=== PATIENT | female | born 1950 | race African-American/Black ===

== ENCOUNTER 2017-06-01 10:18 | Inpatient (IN) | payer OTHER ==
[~2017-06-01] VITALS: Ht 162.6 cm; Wt 100.4 kg
[~2017-06-01 10:18] MED LIST: CIPROFLOXACIN500 M2 ORAL; IBUPROFEN600 MG ORAL; NKM; TRAMADOL HCL50 MG ORAL
[2017-06-01] MEDS ORDERED: Ipratropium 0.02% Inh Soln 2.5ml UD HHN ONE (10:45)
[2017-06-01] MEDS ORDERED: Albuterol ud Inhalation HHN ONE (10:45)
--- NOTE | 2017-06-01 11:00 | Emergency Room Report ---
History of Present Illness General Chief Complaint: Flu Like Symptoms Source: Patient, EMS Present Illness HPI Patient presents with 5 days of increasing dyspnea. States this with exertion and also orthopnea. She's had congestive heart failure in the past. She denies any pain at this time. She denies fevers or chills or productive cough. She also has wheezing. She denies actual chest pain but feels more that she short of breath and this causes discomfort in chest. H/O anemia in past. No hematemesis, melena. No prior renal dysfunction. Denies fever or chills. No NVD. No dysuria. No rashes. Allergies: Coded Allergies: ACETAMINOPHEN (Verified Allergy, Unknown, 01/20/11) CODEINE (Verified Allergy, Unknown, 01/20/11) HYDROCODONE (Verified Allergy, Unknown, 01/20/11) Patient History Past Medical History: see triage record, old chart reviewed Past Surgical History: other - thyroid surgery Social History: Reports: smoking - former Social History Narrative at home Reviewed Nursing Documentation: PMH: Agreed, PSxH: Agreed Nursing Documentation-PMH Past Medical History: No History, Except For Hx Cardiac Problems: Yes - CHF Hx Hypertension: Yes Hx Asthma: No - "THYROID PROBLEMS" Hx Diabetes: Yes Review of Systems All Other Systems: negative except mentioned in HPI Physical Exam Vital Signs Date Time Temp Pulse Resp B/P (MAP) Pulse Ox O2 Delivery O2 Flow Rate FiO2 06/01/17 10:06 98.7 86 20 151/92 99 Room Air 98.8 06/01/17 10:50 21 Sp02 EP Interpretation: reviewed, normal General Appearance: well appearing, no apparent distress, GCS 15 Head: normocephalic, atraumatic Eyes: bilateral eye PERRL, bilateral eye conjunctivae pale ENT: moist mucus membranes Neck: supple Respiratory: rales, wheezing, expiration Cardiovascular #1: regular rate, rhythm, no edema - evidence of prior edema - wrinkled skin of arms and hands, edema Cardiovascular #2: 2+ radial (R) Gastrointestinal: normal inspection, normal bowel sounds, non tender, no mass, non-distended, overweight Rectal: heme negative stool - brown Genitourinary: no CVA tenderness Musculoskeletal: back normal, gait/station normal, normal range of motion Neurologic: alert, oriented x3, grossly normal Psychiatric: mood/affect normal Skin: normal inspection, warm/dry Procedures Critical Care Time Critical Care Time Total Critical Care Time: 45 min bedside evaluation and treatment excludes procedures (EKG). Reason for critical care: NSTEMI, significant anemia, chf Possible complications: hypotension, hypertension, CT, shock, arrhythmias, metabolic acidosis, end organ damage, respiratory failure. Interventions: albuterol, lasix, transfusions, aspirin, nitro paste Course: Patient with PRITCHETT and wheezing. Albuterol given with help. CXR with CHF. Lasix ordered. Significant anemia. + troponin, EKG without STEMI. Aspirin given, nitrates (pain free). Due to anemia and cardiac ischemia - emergent transfusion (though slow due to CHF). Admit [facility]. Consultations: nursing staff, EMS, blood bank Performed by: Dr. Avalos Tolerated well condition = serious Medical Decision Making Diagnostic Impression: Primary Impression: NSTEMI (non-ST elevated myocardial infarction) Additional Impressions: CHF (congestive heart failure) Qualified Codes: I50.43 - Acute on chronic combined systolic (congestive) and diastolic (congestive) heart failure Anemia Qualified Codes: D50.0 - Iron deficiency anemia secondary to blood loss ( chronic) Pyuria ER Course Patient with PRITCHETT/orthopnea and wheezing. DDx: asthma, cardiac asthma, AMI, bronchitis amongst others. No evidence of infectious process at this time. Treatment with albuterol Evaluation with EKG, CXR, labs. EKG no STEMI/injury. CXR with CHF. Lasix ordered. Significant anemia. Rectal neg. Prior H/H have been low (distant testing). + troponin found at 12:00. Treated with aspirin and nitro-bid. In face of NSTEMI - emergent transfusion (call to blood bank). Informed consent. Blood started in ED - patient tolerating well. Admit [facility] Dr. Chowdary. Laboratory Tests Test 06/01/17 11:00 06/01/17 11:34 06/01/17 16:20 White Blood Count 6.0 K/UL (4.8-10.8) Red Blood Count 3.51 M/UL (4.20-5.40) L Hemoglobin 7.9 G/DL (12.0-16.0) L Hematocrit 26.9 % (37.0-47.0) L Mean Corpuscular Volume 77 FL (80-99) L Mean Corpuscular Hemoglobin 22.6 PG (27.0-31.0) L Mean Corpuscular Hemoglobin Concent 29.5 G/DL (32.0-36.0) L Red Cell Distribution Width 17.0 % (11.6-14.8) H Platelet Count 157 K/UL (150-450) Mean Platelet Volume 8.9 FL (6.5-10.1) Neutrophils (%) (Auto) % (45.0-75.0) Lymphocytes (%) (Auto) % (20.0-45.0) Monocytes (%) (Auto) % (1.0-10.0) Eosinophils (%) (Auto) % (0.0-3.0) Basophils (%) (Auto) % (0.0-2.0) Differential Total Cells Counted 100 Neutrophils % (Manual) 65 % (45-75) Lymphocytes % (Manual) 31 % (20-45) Monocytes % (Manual) 1 % (1-10) Eosinophils % (Manual) 3 % (0-3) Basophils % (Manual) 0 % (0-2) Band Neutrophils 0 % (0-8) Platelet Estimate Adequate Platelet Morphology Normal Hypochromasia 1+ Anisocytosis 1+ Microcytosis Prothrombin Time 10.2 SEC (9.30-11.50) Prothrombin Time INR 1.0 (0.9-1.1) PTT 26 SEC (23-33) Sodium Level 141 MMOL/L (136-145) Potassium Level 3.9 MMOL/L (3.5-5.1) Chloride Level 104 MMOL/L (98-107) Carbon Dioxide Level 30 MMOL/L (21-32) Anion Gap 7 mmol/L (5-15) Blood Urea Nitrogen 15 mg/dL (7-18) Creatinine 1.3 MG/DL (0.55-1.30) Estimate Glomerular Filtration Rate 49.8 mL/min (>60) Glucose Level 163 MG/DL (74-106) H Calcium Level 9.6 MG/DL (8.5-10.1) Total Bilirubin 0.5 MG/DL (0.2-1.0) Aspartate Amino Transferase (AST) 29 U/L (15-37) Alanine Aminotransferase (ALT) 26 U/L (12-78) Alkaline Phosphatase 92 U/L (46-116) Total Creatine Kinase 272 U/L (26-308) Troponin I 0.087 ng/mL (0.000-0.056) 0.093 ng/mL (0.000-0.056) Pro-B-Type Natriuretic Peptide 2757 pg/mL (0-125) H Total Protein 8.5 G/DL (6.4-8.2) H Albumin 4.2 G/DL (3.4-5.0) Globulin 4.3 g/dL Albumin/Globulin Ratio 1.0 (1.0-2.7) Urine Color Pale yellow Urine Appearance Slightly cloudy Urine pH 6 (4.5-8.0) Urine Specific [place] 1.015 (1.005-1.035) Urine Protein 2+ (NEGATIVE) H Urine Glucose (UA) Negative (NEGATIVE) Urine Ketones Negative (NEGATIVE) Urine Occult Blood 2+ (NEGATIVE) H Urine Nitrite Negative (NEGATIVE) Urine Bilirubin Negative (NEGATIVE) Urine Urobilinogen Normal MG/DL (0.0-1.0) Urine Leukocyte Esterase 3+ (NEGATIVE) H Urine RBC 5-10 /HPF (0 - 2) H Urine WBC 10-15 /HPF (0 - 2) H Urine Squamous Epithelial Cells Few /LPF (NONE/OCC) Urine Bacteria Few /HPF (NONE) Urine Mucus Few /LPF (NONE/OCC) H Urine Trichomonas Few /HPF (NONE) H Iron Level 52 ug/dL (50-175) Total Iron Binding Capacity 350 ug/dL (250-450) Percent Iron Saturation 15 % (15-50) Unsaturated Iron Binding 298 ug/dL (112-346) EKG Diagnostic Results Rate: normal Rhythm: NSR ST Segments: no acute changes Rhythm Strip Diag. Results EP Interpretation: yes Rhythm: NSR, no PVC's, no ectopy Chest X-Ray Diagnostic Results Chest X-Ray Diagnostic Results : Chest X-Ray Ordered: Yes # of Views/Limited/Complete: 1 View Indication: Shortness of Breath EP Interpretation: Yes Interpretation: no pneumothorax, other - CHF with effusions Impression: Other Electronically Signed by: Grey Avalos MD Last Vital Signs Date Time Temp Pulse Resp B/P (MAP) Pulse Ox O2 Delivery O2 Flow Rate FiO2 06/01/17 22:16 88 20 99 Nasal Cannula 2.0 28 06/01/17 15:00 97.5 140/97 Status: improved Disposition: ADMITTED INPATIENT Condition: Serious Referrals: [facility],REFERRING (PCP) Grey Avalos M.D. Jun 01, 2017 11:00
[2017-06-01 11:10] VITALS: BP 128/78
[2017-06-01 11:16] LABS: HEMATOCRIT 26.9 % (37.0-47.0); HEMOGLOBIN 7.9 G/DL (12.0-16.0); MEAN CORPUSCULAR VOLUME 77 FL (80-99); PLATELET COUNT 157 K/UL (150-450); RED BLOOD COUNT 3.51 M/UL (4.20-5.40)
[2017-06-01 11:24] LABS: ANION GAP 7 mmol/L (5-15); BLOOD UREA NITROGEN 15 mg/dL (7-18); CALCIUM 9.6 MG/DL (8.5-10.1); CARBON DIOXIDE 30 MMOL/L (21-32); CHLORIDE 104 MMOL/L (98-107); CREATININE 1.3 MG/DL (0.55-1.30); POTASSIUM 3.9 MMOL/L (3.5-5.1); SODIUM 141 MMOL/L (136-145)
[2017-06-01 11:36] LABS: ALANINE AMINOTRANSFERASE 26 U/L (12-78); ALBUMIN 4.2 G/DL (3.4-5.0); ALKALINE PHOSPHATASE 92 U/L (46-116); ASPARTATE AMINO TRANSFERASE 29 U/L (15-37); BILIRUBIN,TOTAL 0.5 MG/DL (0.2-1.0); CREATINE KINASE 272 U/L (26-308)
--- NOTE | 2017-06-01 11:45 | Diagnostic Imaging Report ---
Indication: Dyspnea Comparison: 05/21/2014 A single view chest radiograph was obtained. Findings: Interstitial edema, vascular prominence and cephalization with cardiomegaly demonstrated. Findings consistent with congestive heart failure. Bones are unremarkable. IMPRESSION: Interstitial edema/congestive heart failure
[2017-06-01 11:58] LABS: APPEARANCE,URINE SLIGHTLY CLOUDY; BILIRUBIN, URINE NEGATIVE (NEGATIVE); COLOR,URINE PALE YELLOW; GLUCOSE, URINE (UA) NEGATIVE (NEGATIVE); KETONES,URINE NEGATIVE (NEGATIVE); LEUKOCYTE ESTERASE ,URINE 3+ (NEGATIVE); NITRITE,URINE NEGATIVE (NEGATIVE); PH,URINE 6 (4.5-8.0); PROTEIN,URINE 2+ (NEGATIVE); UROBILINOGEN,URINE NORMAL MG/DL (0.0-1.0)
[2017-06-01] MEDS ORDERED: Nitroglycerin 2% oint pkt TOPIC ONE (12:15)
[2017-06-01 14:08] VITALS: BP 137/81
[2017-06-01 15:00] VITALS: BP 140/97
[2017-06-01] MEDS ORDERED: Albuterol/Ipratropium 3ml neb HHN PRN (16:00)
[2017-06-01] MEDS ORDERED: Miralax 17gm pkt ORAL PRN (16:00)
[2017-06-01] MEDS: Albuterol/Ipratropium 3ml neb HHN PRN ×2 (18:04→22:05)
--- NOTE | 2017-06-01 18:15 | History and Physical ---
History of Present Illness General Date patient seen: Jun 01, 2017 Reason for Hospitalization: Flu Like Symptoms Present Illness HPI 66 year old female with hx of obesity, HTN, Asthma presented to with 5 days of increasing dyspnea with exertion and also orthopnea. She's had congestive heart failure in the past. She denies any pain at this time. She denies fevers or chills or productive cough. She also has wheezing. She denies actual chest pain but feels more that she short of breath and this causes discomfort in chest. She had positive troponin and her H/h was critically low and she was admitted to [facility] for further treatment. Allergies: Coded Allergies: ACETAMINOPHEN (Verified Allergy, Unknown, 01/20/11) CODEINE (Verified Allergy, Unknown, 01/20/11) HYDROCODONE (Verified Allergy, Unknown, 01/20/11) Medication History Scheduled Ciprofloxacin Hcl* (Ciprofloxacin Hcl*), 500 MG ORAL Q12H Ibuprofen* (Motrin*), 600 MG ORAL THREE TIMES A DAY No Known Medications* (NKM - No Known Medications*), 0 ., (Reported) Scheduled PRN Ibuprofen* (Motrin*), 600 MG ORAL Q8H PRN for For Pain Tramadol Hcl* (Ultram*), 50 MG ORAL Q6H PRN for For Pain Tramadol Hcl* (Ultram*), 50 MG ORAL Q6H PRN for For Pain Patient History Healthcare decision maker N/A Resuscitation status Full Code Advanced Directive on File Review of Systems Constitutional: Reports: no symptoms, malaise, weakness Eye: Reports: no symptoms Respiratory: Reports: no symptoms, shortness of breath Cardiovascular: Reports: chest pain Physical Exam General Appearance: WD/WN Lines, tubes and drains: peripheral, central line HEENT: atraumatic Neck: normal alignment Respiratory/Chest: chest wall non-tender, lungs clear Breasts: no masses Cardiovascular/Chest: normal peripheral pulses Abdomen: non tender Genitourinary/Rectal: normal genital exam Skin Exam: normal pigmentation Neurologic: press supervisor II-XII grossly normal Last 24 Hour Vital Signs Date Time Temp Pulse Resp B/P (MAP) Pulse Ox O2 Delivery O2 Flow Rate FiO2 06/01/17 18:09 98 Nasal Cannula 2.0 28 06/01/17 18:09 Nasal Cannula 2.0 28 06/01/17 18:05 88 20 98 Nasal Cannula 2.0 28 06/01/17 16:02 85 06/01/17 15:00 97.5 89 19 140/97 96 Room Air 06/01/17 14:15 86 18 137/81 98 Room Air 06/01/17 14:08 89 19 137/81 99 Room Air 06/01/17 12:25 128/81 06/01/17 11:10 87 28 128/78 98 Room Air 06/01/17 11:03 87 18 100 Room Air 21 06/01/17 10:50 21 06/01/17 10:50 80 17 Room Air 06/01/17 10:50 80 17 98 Room Air 21 06/01/17 10:17 86 20 Room Air 06/01/17 10:06 98.7 86 20 151/92 99 Room Air 98.8 Laboratory Tests Test 06/01/17 11:00 06/01/17 11:34 06/01/17 16:20 White Blood Count 6.0 K/UL (4.8-10.8) Red Blood Count 3.51 M/UL (4.20-5.40) L Hemoglobin 7.9 G/DL (12.0-16.0) L Hematocrit 26.9 % (37.0-47.0) L Mean Corpuscular Volume 77 FL (80-99) L Mean Corpuscular Hemoglobin 22.6 PG (27.0-31.0) L Mean Corpuscular Hemoglobin Concent 29.5 G/DL (32.0-36.0) L Red Cell Distribution Width 17.0 % (11.6-14.8) H Platelet Count 157 K/UL (150-450) Mean Platelet Volume 8.9 FL (6.5-10.1) Neutrophils (%) (Auto) % (45.0-75.0) Lymphocytes (%) (Auto) % (20.0-45.0) Monocytes (%) (Auto) % (1.0-10.0) Eosinophils (%) (Auto) % (0.0-3.0) Basophils (%) (Auto) % (0.0-2.0) Differential Total Cells Counted 100 Neutrophils % (Manual) 65 % (45-75) Lymphocytes % (Manual) 31 % (20-45) Monocytes % (Manual) 1 % (1-10) Eosinophils % (Manual) 3 % (0-3) Basophils % (Manual) 0 % (0-2) Band Neutrophils 0 % (0-8) Platelet Estimate Adequate Platelet Morphology Normal Hypochromasia 1+ Anisocytosis 1+ Microcytosis Prothrombin Time 10.2 SEC (9.30-11.50) Prothromb Time International Ratio 1.0 (0.9-1.1) Activated Partial Thromboplast Time 26 SEC (23-33) Sodium Level 141 MMOL/L (136-145) Potassium Level 3.9 MMOL/L (3.5-5.1) Chloride Level 104 MMOL/L (98-107) Carbon Dioxide Level 30 MMOL/L (21-32) Anion Gap 7 mmol/L (5-15) Blood Urea Nitrogen 15 mg/dL (7-18) Creatinine 1.3 MG/DL (0.55-1.30) Estimat Glomerular Filtration Rate 49.8 mL/min (>60) Glucose Level 163 MG/DL (74-106) H Calcium Level 9.6 MG/DL (8.5-10.1) Total Bilirubin 0.5 MG/DL (0.2-1.0) Aspartate Amino Transf (AST/SGOT) 29 U/L (15-37) Alanine Aminotransferase (ALT/SGPT) 26 U/L (12-78) Alkaline Phosphatase 92 U/L (46-116) Total Creatine Kinase 272 U/L (26-308) Troponin I 0.087 ng/mL (0.000-0.056) 0.093 ng/mL (0.000-0.056) Pro-B-Type Natriuretic Peptide 2757 pg/mL (0-125) H Total Protein 8.5 G/DL (6.4-8.2) H Albumin 4.2 G/DL (3.4-5.0) Globulin 4.3 g/dL Albumin/Globulin Ratio 1.0 (1.0-2.7) Urine Color Pale yellow Urine Appearance Slightly cloudy Urine pH 6 (4.5-8.0) Urine Specific [place] 1.015 (1.005-1.035) Urine Protein 2+ (NEGATIVE) H Urine Glucose (UA) Negative (NEGATIVE) Urine Ketones Negative (NEGATIVE) Urine Occult Blood 2+ (NEGATIVE) H Urine Nitrite Negative (NEGATIVE) Urine Bilirubin Negative (NEGATIVE) Urine Urobilinogen Normal MG/DL (0.0-1.0) Urine Leukocyte Esterase 3+ (NEGATIVE) H Urine RBC 5-10 /HPF (0 - 2) H Urine WBC 10-15 /HPF (0 - 2) H Urine Squamous Epithelial Cells Few /LPF (NONE/OCC) Urine Bacteria Few /HPF (NONE) Urine Mucus Few /LPF (NONE/OCC) H Urine Trichomonas Few /HPF (NONE) H Height (Feet): 5 Height (Inches): 4.00 Weight (Pounds): 224 Medications Current Medications Medications (Trade) Dose Ordered Sig/Ricardo Route PRN Reason Start Time Stop Time Status Last Admin Dose Admin Albuterol/ Ipratropium (Albuterol/ Ipratropium) 3 ml Q4H PRN HHN Shortness of Breath 06/01/17 18:00 06/06/17 17:59 06/01/17 18:04 Dextrose (Dextrose 50%) STAT PRN IV Hypoglycemia 06/01/17 16:00 07/01/17 15:59 Furosemide (Lasix) 40 mg EVERY 8 HOURS IV 06/01/17 22:00 07/01/17 21:59 Heparin Sodium (Porcine) (Heparin 5000 units/ml) 5,000 units EVERY 12 HOURS SUBQ 06/01/17 21:00 07/01/17 20:59 Ondansetron HCl (Zofran) 4 mg Q6H PRN IVP Nausea & Vomiting 06/01/17 16:00 07/01/17 15:59 Polyethylene Glycol (Miralax) 17 gm DAILYPRN PRN ORAL Constipation 06/01/17 16:00 07/01/17 15:59 Temazepam (Restoril) 15 mg HSPRN PRN ORAL Insomnia 06/01/17 16:00 06/08/17 15:59 Assessment/Plan Problem List: (1) NSTEMI (non-ST elevated myocardial infarction) ICD Codes: I21.4 - Non-ST elevation (NSTEMI) myocardial infarction SNOMED: 724390361 (2) CHF (congestive heart failure) ICD Codes: I50.9 - Heart failure, unspecified SNOMED: 89921292 Qualifiers: Qualified Codes: I50.43 - Acute on chronic combined systolic (congestive) and diastolic (congestive) heart failure (3) Acute chest pain ICD Codes: R07.9 - Chest pain, unspecified SNOMED: 724454103 (4) Anemia ICD Codes: D64.9 - Anemia, unspecified SNOMED: 588573647 Qualifiers: Qualified Codes: D50.0 - Iron deficiency anemia secondary to blood loss ( chronic) Assessment/Plan diuresis prbc amenia w/u stool for OB echo cariology to see dvt prophylaxis. MUKESH LOU Jun 01, 2017 18:14
--- NOTE | 2017-06-01 19:58 | Cardiology Progress Note ---
Assessment/Plan Assessment/Plan [id number] diuretic repeat enzyme ekg stool ob anemia guaman per pmd echo Objective Last 24 Hour Vital Signs Date Time Temp Pulse Resp B/P (MAP) Pulse Ox O2 Delivery O2 Flow Rate FiO2 06/01/17 18:17 89 18 99 Nasal Cannula 2.0 28 06/01/17 18:09 98 Nasal Cannula 2.0 28 06/01/17 18:09 Nasal Cannula 2.0 28 06/01/17 18:05 88 20 98 Nasal Cannula 2.0 28 06/01/17 16:02 85 06/01/17 15:00 97.5 89 19 140/97 96 Room Air 06/01/17 14:15 86 18 137/81 98 Room Air 06/01/17 14:08 89 19 137/81 99 Room Air 06/01/17 12:25 128/81 06/01/17 11:10 87 28 128/78 98 Room Air 06/01/17 11:03 87 18 100 Room Air 21 06/01/17 10:50 21 06/01/17 10:50 80 17 Room Air 06/01/17 10:50 80 17 98 Room Air 21 06/01/17 10:17 86 20 Room Air 06/01/17 10:06 98.7 86 20 151/92 99 Room Air 98.8 Laboratory Tests Test 06/01/17 11:00 06/01/17 11:34 06/01/17 16:20 White Blood Count 6.0 K/UL (4.8-10.8) Red Blood Count 3.51 M/UL (4.20-5.40) L Hemoglobin 7.9 G/DL (12.0-16.0) L Hematocrit 26.9 % (37.0-47.0) L Mean Corpuscular Volume 77 FL (80-99) L Mean Corpuscular Hemoglobin 22.6 PG (27.0-31.0) L Mean Corpuscular Hemoglobin Concent 29.5 G/DL (32.0-36.0) L Red Cell Distribution Width 17.0 % (11.6-14.8) H Platelet Count 157 K/UL (150-450) Mean Platelet Volume 8.9 FL (6.5-10.1) Neutrophils (%) (Auto) % (45.0-75.0) Lymphocytes (%) (Auto) % (20.0-45.0) Monocytes (%) (Auto) % (1.0-10.0) Eosinophils (%) (Auto) % (0.0-3.0) Basophils (%) (Auto) % (0.0-2.0) Differential Total Cells Counted 100 Neutrophils % (Manual) 65 % (45-75) Lymphocytes % (Manual) 31 % (20-45) Monocytes % (Manual) 1 % (1-10) Eosinophils % (Manual) 3 % (0-3) Basophils % (Manual) 0 % (0-2) Band Neutrophils 0 % (0-8) Platelet Estimate Adequate Platelet Morphology Normal Hypochromasia 1+ Anisocytosis 1+ Microcytosis Prothrombin Time 10.2 SEC (9.30-11.50) Prothromb Time International Ratio 1.0 (0.9-1.1) Activated Partial Thromboplast Time 26 SEC (23-33) Sodium Level 141 MMOL/L (136-145) Potassium Level 3.9 MMOL/L (3.5-5.1) Chloride Level 104 MMOL/L (98-107) Carbon Dioxide Level 30 MMOL/L (21-32) Anion Gap 7 mmol/L (5-15) Blood Urea Nitrogen 15 mg/dL (7-18) Creatinine 1.3 MG/DL (0.55-1.30) Estimat Glomerular Filtration Rate 49.8 mL/min (>60) Glucose Level 163 MG/DL (74-106) H Calcium Level 9.6 MG/DL (8.5-10.1) Total Bilirubin 0.5 MG/DL (0.2-1.0) Aspartate Amino Transf (AST/SGOT) 29 U/L (15-37) Alanine Aminotransferase (ALT/SGPT) 26 U/L (12-78) Alkaline Phosphatase 92 U/L (46-116) Total Creatine Kinase 272 U/L (26-308) Troponin I 0.087 ng/mL (0.000-0.056) 0.093 ng/mL (0.000-0.056) Pro-B-Type Natriuretic Peptide 2757 pg/mL (0-125) H Total Protein 8.5 G/DL (6.4-8.2) H Albumin 4.2 G/DL (3.4-5.0) Globulin 4.3 g/dL Albumin/Globulin Ratio 1.0 (1.0-2.7) Urine Color Pale yellow Urine Appearance Slightly cloudy Urine pH 6 (4.5-8.0) Urine Specific [place] 1.015 (1.005-1.035) Urine Protein 2+ (NEGATIVE) H Urine Glucose (UA) Negative (NEGATIVE) Urine Ketones Negative (NEGATIVE) Urine Occult Blood 2+ (NEGATIVE) H Urine Nitrite Negative (NEGATIVE) Urine Bilirubin Negative (NEGATIVE) Urine Urobilinogen Normal MG/DL (0.0-1.0) Urine Leukocyte Esterase 3+ (NEGATIVE) H Urine RBC 5-10 /HPF (0 - 2) H Urine WBC 10-15 /HPF (0 - 2) H Urine Squamous Epithelial Cells Few /LPF (NONE/OCC) Urine Bacteria Few /HPF (NONE) Urine Mucus Few /LPF (NONE/OCC) H Urine Trichomonas Few /HPF (NONE) H SURESH SALINAS Jun 01, 2017 19:58
[2017-06-01 20:00] VITALS: BP 139/85
[2017-06-01] MEDS: Heparin 5000 units/ml inj SUBQ SCH (20:26)
[2017-06-01 20:36] LABS: % IRON SATURATION 15 % (15-50); IRON 52 ug/dL (50-175); TOTAL IRON BINDING CAPACITY 350 ug/dL (250-450)
[2017-06-02] VITALS (7 sets, daily range): BP systolic 108–149; BP diastolic 58–82
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
[2017-06-02] MEDS: Albuterol/Ipratropium 3ml neb HHN PRN ×3 (02:19→21:19)
[2017-06-02 04:51] LABS: BASOPHILS % (AUTO) 0.6 % (0.0-2.0); EOSINOPHILS % (AUTO) 1.4 % (0.0-3.0); HEMATOCRIT 31.2 % (37.0-47.0); HEMOGLOBIN 9.5 G/DL (12.0-16.0); LYMPHOCYTES % (AUTO) 20.1 % (20.0-45.0); MEAN CORPUSCULAR VOLUME 80 FL (80-99); MONOCYTES % (AUTO) 2.7 % (1.0-10.0); NEUTROPHILS % (AUTO) 75.3 % (45.0-75.0); PLATELET COUNT 160 K/UL (150-450); RED BLOOD COUNT 3.91 M/UL (4.20-5.40); RED CELL DISTRIBUTION WIDTH 17.2 % (11.6-14.8); WHITE BLOOD COUNT 6.7 K/UL (4.8-10.8)
[2017-06-02 05:08] LABS: ALBUMIN 4.4 G/DL (3.4-5.0); ANION GAP 7 mmol/L (5-15); BLOOD UREA NITROGEN 15 mg/dL (7-18); CARBON DIOXIDE 31 MMOL/L (21-32); CHLORIDE 102 MMOL/L (98-107); CREATININE 1.3 MG/DL (0.55-1.30); PHOSPHORUS 3.1 MG/DL (2.5-4.9); POTASSIUM 4.6 MMOL/L (3.5-5.1); SODIUM 140 MMOL/L (136-145)
[2017-06-02] MEDS: Heparin 5000 units/ml inj SUBQ SCH ×2 (08:58→21:40)
--- NOTE | 2017-06-02 11:49 | Pulmonology Progress Note ---
Assessment/Plan Problems: (1) NSTEMI (non-ST elevated myocardial infarction) (2) CHF (congestive heart failure) (3) Acute chest pain (4) Anemia Assessment/Plan cardio f/u check echo check troponin h/h better now telemetry respiratory treatment. Subjective ROS Limited/Unobtainable: No Allergies: Coded Allergies: ACETAMINOPHEN (Verified Allergy, Unknown, 01/20/11) CODEINE (Verified Allergy, Unknown, 01/20/11) HYDROCODONE (Verified Allergy, Unknown, 01/20/11) Objective Last 24 Hour Vital Signs Date Time Temp Pulse Resp B/P (MAP) Pulse Ox O2 Delivery O2 Flow Rate FiO2 06/02/17 08:00 88 06/02/17 07:58 97.8 90 20 149/82 98 Nasal Cannula 2.0 06/02/17 07:55 89 22 98 Nasal Cannula 2.0 28 06/02/17 07:49 96 Nasal Cannula 2.0 28 06/02/17 07:49 Nasal Cannula 2.0 28 06/02/17 07:48 87 20 96 Nasal Cannula 2.0 28 06/02/17 04:00 98.0 89 24 122/70 99 Nasal Cannula 2.0 06/02/17 02:20 83 23 96 Nasal Cannula 2.0 28 06/02/17 00:50 90 06/02/17 00:00 94 06/02/17 00:00 97.7 87 24 148/58 99 Nasal Cannula 2.0 06/01/17 22:16 88 20 99 Nasal Cannula 2.0 28 06/01/17 22:08 88 22 97 Nasal Cannula 2.0 28 06/01/17 20:00 94 06/01/17 20:00 97.7 86 28 139/85 99 Nasal Cannula 2.0 06/01/17 18:17 89 18 99 Nasal Cannula 2.0 28 06/01/17 18:09 98 Nasal Cannula 2.0 28 06/01/17 18:09 Nasal Cannula 2.0 28 06/01/17 18:05 88 20 98 Nasal Cannula 2.0 28 06/01/17 16:02 85 06/01/17 15:00 97.5 89 19 140/97 96 Room Air 06/01/17 14:15 86 18 137/81 98 Room Air 06/01/17 14:08 89 19 137/81 99 Room Air 06/01/17 12:25 128/81 Intake and Output 06/01/17 06/02/17 19:00 07:00 Intake Total 620 ml 150 ml Output Total 520 ml Balance 620 ml -370 ml Intake Oral 120 ml 150 ml Blood Product 500 ml Output Urine Total 520 ml # Voids 3 Objective General Appearance: WD/WN Lines, tubes and drains: peripheral, central line HEENT: atraumatic Neck: normal alignment Respiratory/Chest: chest wall non-tender, lungs clear Breasts: no masses Cardiovascular/Chest: normal peripheral pulses Abdomen: non tender Genitourinary/Rectal: normal genital exam Skin Exam: normal pigmentation Microbiology Date/Time Source Procedure Growth Status 06/01/17 11:34 Urine,Clean Catch Urine Culture - Preliminary Resulted Laboratory Tests 06/01/17 16:20: Iron Level 52, Total Iron Binding Capacity 350, Percent Iron Saturation 15, Unsaturated Iron Binding 298, Troponin I 0.093H 06/02/17 03:50: Troponin I 0.076H, White Blood Count 6.7, Red Blood Count 3.91L, Hemoglobin 9.5L , Hematocrit 31.2L, Mean Corpuscular Volume 80, Mean Corpuscular Hemoglobin 24.3L, Mean Corpuscular Hemoglobin Concent 30.5L, Red Cell Distribution Width 17.2H, Platelet Count 160, Mean Platelet Volume 8.7, Neutrophils (%) (Auto) 75.3H, Lymphocytes (%) (Auto) 20.1, Monocytes (%) (Auto) 2.7, Eosinophils (%) ( Auto) 1.4, Basophils (%) (Auto) 0.6, Sodium Level 140, Potassium Level 4.6, Chloride Level 102, Carbon Dioxide Level 31, Anion Gap 7, Blood Urea Nitrogen 15 , Creatinine 1.3, Estimat Glomerular Filtration Rate 49.8, Glucose Level 154H, Calcium Level 10.0, Phosphorus Level 3.1, Albumin 4.4 Current Medications Medications (Trade) Dose Ordered Sig/Ricardo Route PRN Reason Start Time Stop Time Status Last Admin Dose Admin Albuterol/ Ipratropium (Albuterol/ Ipratropium) 3 ml Q4H PRN HHN Shortness of Breath 06/01/17 18:00 06/06/17 17:59 06/02/17 07:46 Dextrose (Dextrose 50%) STAT PRN IV Hypoglycemia 06/01/17 16:00 07/01/17 15:59 Furosemide (Lasix) 40 mg EVERY 8 HOURS IV 06/01/17 22:00 07/01/17 21:59 06/02/17 06:13 Heparin Sodium (Porcine) (Heparin 5000 units/ml) 5,000 units EVERY 12 HOURS SUBQ 06/01/17 21:00 07/01/17 20:59 06/02/17 08:58 Ondansetron HCl (Zofran) 4 mg Q6H PRN IVP Nausea & Vomiting 06/01/17 16:00 07/01/17 15:59 Polyethylene Glycol (Miralax) 17 gm DAILYPRN PRN ORAL Constipation 06/01/17 16:00 07/01/17 15:59 Temazepam (Restoril) 15 mg HSPRN PRN ORAL Insomnia 06/01/17 16:00 06/08/17 15:59 06/01/17 23:21 MUKESH LOU Jun 02, 2017 11:49
--- NOTE | 2017-06-02 12:57 | Cardiology Report ---
APPROVED REPORT EKG Measurement Heart [id number] Normal sinus rhythm Low voltage QRS Septal infarct, age undetermined Abnormal ECG
--- NOTE | 2017-06-02 13:07 | Diagnostic Imaging Report ---
Indication: Dyspnea Comparison: 06/01/2017 A single view chest radiograph was obtained. Findings: The heart is enlarged. The pulmonary vascular congestion present. Interstitial edema noted. IMPRESSION: CHF. No significant change
--- NOTE | 2017-06-02 17:17 | Consultation ---
History of Present Illness General Date patient seen: Jun 02, 2017 Time patient seen: 17:06 Chief Complaint: Flu Like Symptoms Present Illness HPI 66 y/o F with hx of COPD/asthma, HTN, HLD, CHF, obesity presents to ED on 06/01 with 5 day onset of worsening SOB, cough wheezing, chest pain, PND, orthopnea and occasional dizziness/lightheadedness. Found to have troponinemia and Hgb of 7.9 +runny nose, cough, chills. No sick contqacts Denies f/c, n/v/d, rash, dysuria afebrile, no leukocytosis. CXR with CHF changes. off abx.] of note, was in [place] from end to mar 2017 to mid april for a mission trip from [place]. Did not got sick there, took malaria pills and shots prior to travel. Allergies: Coded Allergies: ACETAMINOPHEN (Verified Allergy, Unknown, 01/20/11) CODEINE (Verified Allergy, Unknown, 01/20/11) HYDROCODONE (Verified Allergy, Unknown, 01/20/11) Medication History Scheduled Ciprofloxacin Hcl* (Ciprofloxacin Hcl*), 500 MG ORAL Q12H Ibuprofen* (Motrin*), 600 MG ORAL THREE TIMES A DAY No Known Medications* (NKM - No Known Medications*), 0 ., (Reported) Scheduled PRN Ibuprofen* (Motrin*), 600 MG ORAL Q8H PRN for For Pain Tramadol Hcl* (Ultram*), 50 MG ORAL Q6H PRN for For Pain Tramadol Hcl* (Ultram*), 50 MG ORAL Q6H PRN for For Pain Patient History Healthcare decision maker N/A Resuscitation status Full Code Advanced Directive on File Patient History Narrative Pmhx: as above Shx: She used to smoke, drink, and use drugs, but she has not done those in approximately 22 years. Fhx: non contributory Review of Systems All Other Systems: negative except mentioned in HPI Physical Exam Physical Exam Narrative GENERAL: Shows her to be a middle-aged female, in no respiratory distress. HEENT: Unremarkable. NECK: Supple. No jugular venous distention. LUNGS: bibasilar crackles CARDIAC: Regular rate and rhythm. No heaves or thrills noted. ABDOMEN: Soft, obese. Positive bowel sounds. CHEST WALL: Tender to palpation. EXTREMITIES: There is no clubbing, cyanosis, or edema. NEUROLOGICAL: She is awake, alert, responsive, in no apparent respiratory distress. Last 24 Hour Vital Signs Date Time Temp Pulse Resp B/P (MAP) Pulse Ox O2 Delivery O2 Flow Rate FiO2 06/02/17 12:00 98.2 86 18 114/75 93 Nasal Cannula 2.0 06/02/17 12:00 88 06/02/17 08:00 88 06/02/17 07:58 97.8 90 20 149/82 98 Nasal Cannula 2.0 06/02/17 07:55 89 22 98 Nasal Cannula 2.0 28 06/02/17 07:49 96 Nasal Cannula 2.0 28 06/02/17 07:49 Nasal Cannula 2.0 28 06/02/17 07:48 87 20 96 Nasal Cannula 2.0 28 06/02/17 04:00 98.0 89 24 122/70 99 Nasal Cannula 2.0 06/02/17 02:20 83 23 96 Nasal Cannula 2.0 28 06/02/17 00:50 90 06/02/17 00:00 94 06/02/17 00:00 97.7 87 24 148/58 99 Nasal Cannula 2.0 06/01/17 22:16 88 20 99 Nasal Cannula 2.0 28 06/01/17 22:08 88 22 97 Nasal Cannula 2.0 28 06/01/17 20:00 94 06/01/17 20:00 97.7 86 28 139/85 99 Nasal Cannula 2.0 06/01/17 18:17 89 18 99 Nasal Cannula 2.0 28 06/01/17 18:09 98 Nasal Cannula 2.0 28 06/01/17 18:09 Nasal Cannula 2.0 28 06/01/17 18:05 88 20 98 Nasal Cannula 2.0 28 Intake and Output 06/01/17 06/02/17 19:00 07:00 Intake Total 620 ml 150 ml Output Total 520 ml Balance 620 ml -370 ml Intake Oral 120 ml 150 ml Blood Product 500 ml Output Urine Total 520 ml # Voids 3 Laboratory Tests Test 06/02/17 03:50 White Blood Count 6.7 K/UL (4.8-10.8) Red Blood Count 3.91 M/UL (4.20-5.40) L Hemoglobin 9.5 G/DL (12.0-16.0) L Hematocrit 31.2 % (37.0-47.0) L Mean Corpuscular Volume 80 FL (80-99) Mean Corpuscular Hemoglobin 24.3 PG (27.0-31.0) L Mean Corpuscular Hemoglobin Concent 30.5 G/DL (32.0-36.0) L Red Cell Distribution Width 17.2 % (11.6-14.8) H Platelet Count 160 K/UL (150-450) Mean Platelet Volume 8.7 FL (6.5-10.1) Neutrophils (%) (Auto) 75.3 % (45.0-75.0) H Lymphocytes (%) (Auto) 20.1 % (20.0-45.0) Monocytes (%) (Auto) 2.7 % (1.0-10.0) Eosinophils (%) (Auto) 1.4 % (0.0-3.0) Basophils (%) (Auto) 0.6 % (0.0-2.0) Sodium Level 140 MMOL/L (136-145) Potassium Level 4.6 MMOL/L (3.5-5.1) Chloride Level 102 MMOL/L (98-107) Carbon Dioxide Level 31 MMOL/L (21-32) Anion Gap 7 mmol/L (5-15) Blood Urea Nitrogen 15 mg/dL (7-18) Creatinine 1.3 MG/DL (0.55-1.30) Estimat Glomerular Filtration Rate 49.8 mL/min (>60) Glucose Level 154 MG/DL (74-106) H Calcium Level 10.0 MG/DL (8.5-10.1) Phosphorus Level 3.1 MG/DL (2.5-4.9) Troponin I 0.076 ng/mL (0.000-0.056) Albumin 4.4 G/DL (3.4-5.0) Height (Feet): 5 Height (Inches): 4.00 Weight (Pounds): 222 Medications Current Medications Medications (Trade) Dose Ordered Sig/Ricardo Route PRN Reason Start Time Stop Time Status Last Admin Dose Admin Albuterol/ Ipratropium (Albuterol/ Ipratropium) 3 ml Q4H PRN HHN Shortness of Breath 06/01/17 18:00 06/06/17 17:59 06/02/17 07:46 Dextrose (Dextrose 50%) STAT PRN IV Hypoglycemia 06/01/17 16:00 07/01/17 15:59 Furosemide (Lasix) 40 mg EVERY 8 HOURS IV 06/01/17 22:00 07/01/17 21:59 06/02/17 13:38 Heparin Sodium (Porcine) (Heparin 5000 units/ml) 5,000 units EVERY 12 HOURS SUBQ 06/01/17 21:00 07/01/17 20:59 06/02/17 08:58 Ondansetron HCl (Zofran) 4 mg Q6H PRN IVP Nausea & Vomiting 06/01/17 16:00 07/01/17 15:59 Polyethylene Glycol (Miralax) 17 gm DAILYPRN PRN ORAL Constipation 06/01/17 16:00 07/01/17 15:59 Temazepam (Restoril) 15 mg HSPRN PRN ORAL Insomnia 06/01/17 16:00 06/08/17 15:59 06/01/17 23:21 Assessment/Plan Assessment/Plan Abx: None Assessment: CHF exacerbation, no evidence fo PNA -CXR: CHF. No significant change URI symptoms- r/o Influenza Afebrile, no leukocytosis -u/a wbc 10/15, nit neg, leuk +3; ucx p- no UTI symptoms Troponinemia Anemia COPD/asthma HTN HLD obesity Plan: -Continue to monitor off abx -influenza test -f/u cx -monitor CBC/BMP, temperatures Thank you for this consultation. Will continue to follow along with you. Discussed with Tiki Covarrubias M.D. Jun 02, 2017 17:17
[2017-06-03 04:00] VITALS: BP 106/64
[2017-06-03 08:00] VITALS: BP 109/64
--- NOTE | 2017-06-03 08:14 | Pulmonology Progress Note ---
Assessment/Plan Assessment/Plan ASSESSMENT Elevated troponin CHF exacerbation, systolic and diastolic severe CM ( EF 20-25%) Severe MR mild pulmonary HTN anemia HTN asthma/COPD obesity PLAN OF CARE DINORAH Diuresis, monitor cardiorenal parameters, volumes ECHO with EF 20-25% and RVSP of 35, severe MR Cardio follows medical management for SHF as per cardio Initial CXR with CHF, O2 HHN Fup with CXR serial troponin, ECG Anemia w/up stool OB s/p 2 u PRBC ID follows keep off abx, no clear evidence of infection influenza negative DVT prophylaxis case discussed and evaluated by supervising physician Subjective Allergies: Coded Allergies: ACETAMINOPHEN (Verified Allergy, Unknown, 01/20/11) CODEINE (Verified Allergy, Unknown, 01/20/11) HYDROCODONE (Verified Allergy, Unknown, 01/20/11) Subjective reports SOB , no chest pain Objective Last 24 Hour Vital Signs Date Time Temp Pulse Resp B/P (MAP) Pulse Ox O2 Delivery O2 Flow Rate FiO2 06/03/17 04:00 97.5 84 20 106/64 99 Nasal Cannula 2.0 06/03/17 04:00 80 06/03/17 00:00 85 06/02/17 23:57 97.5 84 20 108/67 99 Nasal Cannula 2.0 06/02/17 21:27 79 20 99 Nasal Cannula 2.0 28 06/02/17 21:18 86 20 97 Nasal Cannula 2.0 28 06/02/17 20:00 98.2 83 20 116/77 98 Nasal Cannula 2.0 06/02/17 20:00 82 06/02/17 19:27 Nasal Cannula 2.0 28 06/02/17 19:27 88 18 Room Air 06/02/17 19:27 98 Nasal Cannula 2.0 28 06/02/17 16:00 97.8 83 18 108/66 98 Nasal Cannula 2.0 06/02/17 16:00 82 06/02/17 12:00 98.2 86 18 114/75 93 Nasal Cannula 2.0 06/02/17 12:00 88 Intake and Output 06/02/17 06/03/17 19:00 07:00 Intake Total 300 ml 200 ml Output Total 1700 ml 1500 ml Balance -1400 ml -1300 ml Intake Oral 300 ml 200 ml Output Urine Total 1700 ml 1500 ml General Appearance: no acute distress HEENT: normocephalic, atraumatic, anicteric Respiratory/Chest: chest wall non-tender, no accessory muscle use, decreased breath sounds Cardiovascular: normal peripheral pulses, edema - trace BLE , other - SR with frequent PVC Abdomen: normal bowel sounds, soft, non tender - obese Neurologic/Psychiatric: alert, oriented x 3, responsive Musculoskeletal: normal muscle bulk Microbiology Date/Time Source Procedure Growth Status 06/02/17 22:57 Nasopharynx Influenza Types A,B Antigen ([facility]) - Final Complete 06/01/17 11:34 Urine,Clean Catch Urine Culture - Preliminary Mixed Urogenital Contaminants Resulted Laboratory Tests 06/03/17 05:00: Troponin I 0.080H Current Medications Medications (Trade) Dose Ordered Sig/Ricardo Route PRN Reason Start Time Stop Time Status Last Admin Dose Admin Albuterol/ Ipratropium (Albuterol/ Ipratropium) 3 ml Q4H PRN HHN Shortness of Breath 06/01/17 18:00 06/06/17 17:59 06/02/17 21:19 Dextrose (Dextrose 50%) STAT PRN IV Hypoglycemia 06/01/17 16:00 07/01/17 15:59 Furosemide (Lasix) 40 mg EVERY 8 HOURS IV 06/01/17 22:00 07/01/17 21:59 06/03/17 05:56 Heparin Sodium (Porcine) (Heparin 5000 units/ml) 5,000 units EVERY 12 HOURS SUBQ 06/01/17 21:00 07/01/17 20:59 06/02/17 21:40 Ondansetron HCl (Zofran) 4 mg Q6H PRN IVP Nausea & Vomiting 06/01/17 16:00 07/01/17 15:59 Polyethylene Glycol (Miralax) 17 gm DAILYPRN PRN ORAL Constipation 06/01/17 16:00 07/01/17 15:59 Temazepam (Restoril) 15 mg HSPRN PRN ORAL Insomnia 06/01/17 16:00 06/08/17 15:59 06/02/17 21:38 Lexi York NP ([facility]) Jun 03, 2017 08:14
[2017-06-03] MEDS: Heparin 5000 units/ml inj SUBQ SCH ×2 (09:21→21:00)
--- NOTE | 2017-06-03 10:50 | Infectious Diseases Prog Note ---
Assessment/Plan Assessment/Plan Abx: None Assessment: SOB likely 2ry to CHF exacerbation, possible component of bronchitis, no evidence fo PNA -CXR: CHF. No significant change -Echo EF 20-25%, severe MR, mild pHTN URI symptoms- -influenza neg Afebrile, no leukocytosis -u/a wbc 10/15, nit neg, leuk +3; ucx 80-90 mixed urogenital contaminants- no UTI symptoms Troponinemia Anemia COPD/asthma HTN HLD obesity Plan: -Continue to monitor off abx -monitor CBC/BMP, temperatures -resp support -asp precautions Thank you for this consultation. Will continue to follow along with you. Discussed with RN Subjective Allergies: Coded Allergies: ACETAMINOPHEN (Verified Allergy, Unknown, 01/20/11) CODEINE (Verified Allergy, Unknown, 01/20/11) HYDROCODONE (Verified Allergy, Unknown, 01/20/11) Subjective afebrile no leukocytosis Objective Vital Signs Last 24 Hour Vital Signs Date Time Temp Pulse Resp B/P (MAP) Pulse Ox O2 Delivery O2 Flow Rate FiO2 06/03/17 08:18 98 Nasal Cannula 2.0 28 06/03/17 08:18 Nasal Cannula 2.0 28 06/03/17 08:18 87 20 Nasal Cannula 2.0 28 06/03/17 08:00 97.5 79 14 109/64 Room Air 06/03/17 04:00 97.5 84 20 106/64 99 Nasal Cannula 2.0 06/03/17 04:00 80 06/03/17 00:00 85 06/02/17 23:57 97.5 84 20 108/67 99 Nasal Cannula 2.0 06/02/17 21:27 79 20 99 Nasal Cannula 2.0 28 06/02/17 21:18 86 20 97 Nasal Cannula 2.0 28 06/02/17 20:00 98.2 83 20 116/77 98 Nasal Cannula 2.0 06/02/17 20:00 82 06/02/17 19:27 Nasal Cannula 2.0 28 06/02/17 19:27 88 18 Room Air 06/02/17 19:27 98 Nasal Cannula 2.0 28 06/02/17 16:00 97.8 83 18 108/66 98 Nasal Cannula 2.0 06/02/17 16:00 82 06/02/17 12:00 98.2 86 18 114/75 93 Nasal Cannula 2.0 06/02/17 12:00 88 Height (Feet): 5 Height (Inches): 4.00 Weight (Pounds): 219 Objective GENERAL: Shows her to be a middle-aged female, in no respiratory distress. HEENT: Unremarkable. NECK: Supple. No jugular venous distention. LUNGS: bibasilar crackles CARDIAC: Regular rate and rhythm. No heaves or thrills noted. ABDOMEN: Soft, obese. Positive bowel sounds. CHEST WALL: Tender to palpation. EXTREMITIES: There is no clubbing, cyanosis, or edema. NEUROLOGICAL: She is awake, alert, responsive, in no apparent respiratory distress. Microbiology Date/Time Source Procedure Growth Status 06/02/17 22:57 Nasopharynx Influenza Types A,B Antigen ([facility]) - Final Complete 06/01/17 11:34 Urine,Clean Catch Urine Culture - Preliminary Mixed Urogenital Contaminants Resulted Laboratory Tests Test 06/03/17 05:00 Troponin I 0.080 ng/mL (0.000-0.056) Current Medications Medications (Trade) Dose Ordered Sig/Ricardo Route PRN Reason Start Time Stop Time Status Last Admin Dose Admin Albuterol/ Ipratropium (Albuterol/ Ipratropium) 3 ml Q4H PRN HHN Shortness of Breath 06/01/17 18:00 06/06/17 17:59 06/02/17 21:19 Dextrose (Dextrose 50%) STAT PRN IV Hypoglycemia 06/01/17 16:00 07/01/17 15:59 Furosemide (Lasix) 40 mg EVERY 8 HOURS IV 06/01/17 22:00 07/01/17 21:59 06/03/17 05:56 Heparin Sodium (Porcine) (Heparin 5000 units/ml) 5,000 units EVERY 12 HOURS SUBQ 06/01/17 21:00 07/01/17 20:59 06/03/17 09:21 Ondansetron HCl (Zofran) 4 mg Q6H PRN IVP Nausea & Vomiting 06/01/17 16:00 07/01/17 15:59 Polyethylene Glycol (Miralax) 17 gm DAILYPRN PRN ORAL Constipation 06/01/17 16:00 07/01/17 15:59 Temazepam (Restoril) 15 mg HSPRN PRN ORAL Insomnia 06/01/17 16:00 06/08/17 15:59 06/02/17 21:38 Tiki Delvalle M.D. Jun 03, 2017 10:50
[2017-06-03 12:00] VITALS: BP 118/67
[2017-06-03] MEDS: Albuterol/Ipratropium 3ml neb HHN PRN ×2 (12:29→20:18)
[2017-06-03 16:00] VITALS: BP_SYST 108; BP_SYST 150; BP_DIAS 63; BP_DIAS 93
--- NOTE | 2017-06-03 18:20 | Cardiology Progress Note ---
Assessment/Plan Assessment/Plan 1. CHF acute systolic 2. Chest pain. 3. Abnormal cardiac enzymes. 4. Renal insufficiency. 5. Obesity. 6. Chronic obstructive pulmonary disease history. 7. Anemia. 8. anemai iv diuretic rxn for copd trop min abn snow etiology of cm not known yet may need ischemia evla acei echo prelim noted duplex neg for dvt lwo na diet fluid restriction Objective Last 24 Hour Vital Signs Date Time Temp Pulse Resp B/P (MAP) Pulse Ox O2 Delivery O2 Flow Rate FiO2 06/03/17 16:12 76 06/03/17 16:00 97.4 73 18 108/63 97 Nasal Cannula 2.0 06/03/17 12:36 75 20 97 Nasal Cannula 2.0 28 06/03/17 12:33 72 20 96 Nasal Cannula 2.0 28 06/03/17 12:00 97.7 80 15 118/67 92 Room Air 06/03/17 12:00 91 06/03/17 08:18 98 Nasal Cannula 2.0 28 06/03/17 08:18 Nasal Cannula 2.0 28 06/03/17 08:18 87 20 Nasal Cannula 2.0 28 06/03/17 08:00 97.5 79 14 109/64 Room Air 06/03/17 07:50 90 06/03/17 04:00 97.5 84 20 106/64 99 Nasal Cannula 2.0 06/03/17 04:00 80 06/03/17 00:00 85 06/02/17 23:57 97.5 84 20 108/67 99 Nasal Cannula 2.0 06/02/17 21:27 79 20 99 Nasal Cannula 2.0 28 06/02/17 21:18 86 20 97 Nasal Cannula 2.0 28 06/02/17 20:00 98.2 83 20 116/77 98 Nasal Cannula 2.0 06/02/17 20:00 82 06/02/17 19:27 Nasal Cannula 2.0 28 06/02/17 19:27 88 18 Room Air 06/02/17 19:27 98 Nasal Cannula 2.0 28 Intake and Output 06/02/17 06/03/17 19:00 07:00 Intake Total 300 ml 200 ml Output Total 1700 ml 1500 ml Balance -1400 ml -1300 ml Intake Oral 300 ml 200 ml Output Urine Total 1700 ml 1500 ml Laboratory Tests Test 06/03/17 05:00 Troponin I 0.080 ng/mL (0.000-0.056) Microbiology Date/Time Source Procedure Growth Status 06/02/17 22:57 Nasopharynx Influenza Types A,B Antigen ([facility]) - Final Complete 06/01/17 11:34 Urine,Clean Catch Urine Culture - Preliminary Mixed Urogenital Contaminants Resulted SURESH SALINAS Jun 03, 2017 18:20
[2017-06-03 20:00] VITALS: BP 104/74
[2017-06-04] VITALS: BP 122/76
[2017-06-04] MEDS: Albuterol/Ipratropium 3ml neb HHN PRN ×2 (00:45→13:51)
[2017-06-04 03:58] LABS: BASOPHILS % (AUTO) 0.5 % (0.0-2.0); EOSINOPHILS % (AUTO) 2.6 % (0.0-3.0); HEMATOCRIT 32.8 % (37.0-47.0); HEMOGLOBIN 10.4 G/DL (12.0-16.0); MEAN CORPUSCULAR VOLUME 77 FL (80-99); MONOCYTES % (AUTO) 3.1 % (1.0-10.0); NEUTROPHILS % (AUTO) 62.7 % (45.0-75.0); PLATELET COUNT 185 K/UL (150-450); RED BLOOD COUNT 4.24 M/UL (4.20-5.40); RED CELL DISTRIBUTION WIDTH 17.3 % (11.6-14.8)
[2017-06-04 04:00] VITALS: BP 111/76
[2017-06-04 04:13] LABS: ANION GAP 5 mmol/L (5-15); BLOOD UREA NITROGEN 29 mg/dL (7-18); CALCIUM 9.9 MG/DL (8.5-10.1); CARBON DIOXIDE 36 MMOL/L (21-32); CHLORIDE 97 MMOL/L (98-107); CREATININE 1.8 MG/DL (0.55-1.30); POTASSIUM 3.5 MMOL/L (3.5-5.1); SODIUM 138 MMOL/L (136-145)
[2017-06-04 08:00] VITALS: BP 117/81
[2017-06-04] MEDS: Heparin 5000 units/ml inj SUBQ SCH ×2 (09:09→21:33)
--- NOTE | 2017-06-04 11:51 | Infectious Diseases Prog Note ---
Assessment/Plan Assessment/Plan Assessment: SOB likely 2ry to CHF exacerbation, possible component of bronchitis, no evidence fo PNA -CXR: CHF. No significant change -Echo EF 20-25%, severe MR, mild pHTN URI symptoms- -influenza neg Afebrile, no leukocytosis -u/a wbc 10/15, nit neg, leuk +3; ucx 80-90 mixed urogenital contaminants- no UTI symptoms Troponinemia Anemia COPD/asthma HTN HLD obesity Plan: -Continue to monitor off abx -monitor CBC/BMP, temperatures -resp support -asp precautions Subjective Constitutional: Denies: no symptoms, fever, chills, fatigue, anorexia, drenching sweats, other Allergies: Coded Allergies: ACETAMINOPHEN (Verified Allergy, Unknown, 01/20/11) CODEINE (Verified Allergy, Unknown, 01/20/11) HYDROCODONE (Verified Allergy, Unknown, 01/20/11) Objective Vital Signs Last 24 Hour Vital Signs Date Time Temp Pulse Resp B/P (MAP) Pulse Ox O2 Delivery O2 Flow Rate FiO2 06/04/17 08:00 83 06/04/17 07:37 Nasal Cannula 1.0 24 06/04/17 07:36 100 Nasal Cannula 1.0 24 06/04/17 07:36 73 18 Nasal Cannula 1.0 24 06/04/17 04:00 98.7 75 20 111/76 100 Nasal Cannula 2.0 06/04/17 04:00 84 06/04/17 01:00 76 18 97 Nasal Cannula 2.0 28 06/04/17 00:45 28 06/04/17 00:44 76 18 97 Nasal Cannula 2.0 28 06/04/17 00:00 98.7 84 24 122/76 98 Nasal Cannula 2.0 06/03/17 20:36 76 18 97 Nasal Cannula 2.0 28 06/03/17 20:17 28 06/03/17 20:17 76 18 97 Nasal Cannula 2.0 28 06/03/17 20:00 81 06/03/17 20:00 98.9 82 20 104/74 97 Nasal Cannula 2.0 06/03/17 19:43 97 Nasal Cannula 2.0 28 06/03/17 19:43 76 18 Nasal Cannula 2.0 28 06/03/17 19:43 Nasal Cannula 2.0 28 06/03/17 16:12 76 06/03/17 16:00 97.4 73 18 108/63 97 Nasal Cannula 2.0 06/03/17 12:36 75 20 97 Nasal Cannula 2.0 28 06/03/17 12:33 72 20 96 Nasal Cannula 2.0 28 06/03/17 12:00 97.7 80 15 118/67 92 Room Air 06/03/17 12:00 91 Height (Feet): 5 Height (Inches): 4.00 Weight (Pounds): 216 HEENT: anicteric Respiratory/Chest: no respiratory distress Cardiovascular: regular rhythm Abdomen: non distended Microbiology Date/Time Source Procedure Growth Status 06/02/17 22:57 Nasopharynx Influenza Types A,B Antigen ([facility]) - Final Complete Laboratory Tests Test 06/04/17 03:45 White Blood Count 5.0 K/UL (4.8-10.8) Red Blood Count 4.24 M/UL (4.20-5.40) Hemoglobin 10.4 G/DL (12.0-16.0) L Hematocrit 32.8 % (37.0-47.0) L Mean Corpuscular Volume 77 FL (80-99) L Mean Corpuscular Hemoglobin 24.5 PG (27.0-31.0) L Mean Corpuscular Hemoglobin Concent 31.7 G/DL (32.0-36.0) L Red Cell Distribution Width 17.3 % (11.6-14.8) H Platelet Count 185 K/UL (150-450) Mean Platelet Volume 9.1 FL (6.5-10.1) Neutrophils (%) (Auto) 62.7 % (45.0-75.0) Lymphocytes (%) (Auto) 31.0 % (20.0-45.0) Monocytes (%) (Auto) 3.1 % (1.0-10.0) Eosinophils (%) (Auto) 2.6 % (0.0-3.0) Basophils (%) (Auto) 0.5 % (0.0-2.0) Sodium Level 138 MMOL/L (136-145) Potassium Level 3.5 MMOL/L (3.5-5.1) Chloride Level 97 MMOL/L (98-107) L Carbon Dioxide Level 36 MMOL/L (21-32) H Anion Gap 5 mmol/L (5-15) Blood Urea Nitrogen 29 mg/dL (7-18) H Creatinine 1.8 MG/DL (0.55-1.30) H Estimat Glomerular Filtration Rate 34.3 mL/min (>60) Glucose Level 192 MG/DL (74-106) H Calcium Level 9.9 MG/DL (8.5-10.1) Magnesium Level 1.9 MG/DL (1.8-2.4) Current Medications Medications (Trade) Dose Ordered Sig/Ricardo Route PRN Reason Start Time Stop Time Status Last Admin Dose Admin Albuterol/ Ipratropium (Albuterol/ Ipratropium) 3 ml Q4H PRN HHN Shortness of Breath 06/01/17 18:00 06/06/17 17:59 06/04/17 00:45 Dextrose (Dextrose 50%) STAT PRN IV Hypoglycemia 06/01/17 16:00 07/01/17 15:59 Furosemide (Lasix) 40 mg EVERY 8 HOURS IV 06/01/17 22:00 07/01/17 21:59 06/04/17 06:42 Heparin Sodium (Porcine) (Heparin 5000 units/ml) 5,000 units EVERY 12 HOURS SUBQ 06/01/17 21:00 07/01/17 20:59 06/04/17 09:09 Ibuprofen (Motrin) 600 mg TIDPRN PRN ORAL For Pain 06/03/17 14:45 07/03/17 14:44 Ondansetron HCl (Zofran) 4 mg Q6H PRN IVP Nausea & Vomiting 06/01/17 16:00 07/01/17 15:59 Polyethylene Glycol (Miralax) 17 gm DAILYPRN PRN ORAL Constipation 06/01/17 16:00 07/01/17 15:59 Temazepam (Restoril) 15 mg HSPRN PRN ORAL Insomnia 06/01/17 16:00 06/08/17 15:59 06/04/17 00:17 SUZANNE STANTON M.D. Jun 04, 2017 11:51
[2017-06-04 12:00] VITALS: BP 94/58
[2017-06-04] MEDS ORDERED: Albuterol/Ipratropium 3ml neb HHN PRN ×2 (14:15→18:00)
--- NOTE | 2017-06-04 14:16 | Pulmonology Progress Note ---
Assessment/Plan Assessment/Plan ASSESSMENT Elevated troponin CHF exacerbation, systolic severe CM ( EF 20-25%) Severe MR mild pulmonary HTN anemia HTN asthma/COPD hx ( no evidence f exacerbation) obesity PLAN OF CARE DINORAH Diuresis, monitor cardiorenal parameters, volumes fluid restriction ECHO with EF 20-25% and RVSP of 35, severe MR Cardio follows medical management for SHF per cardio per cardio etiology of CM unknown, may need ischemia eval Initial CXR with CHF, O2 HHN prn, no evidence of exacerbation Fup with CXR serial troponin with minimal elevation ECG no acute ischemic changes elev troponin likely demand [id number] due to SHF exacerbation Anemia w/up noted stool OB s/p 2 u PRBC ID follows keep off abx, no clear evidence of infection influenza negative DVT prophylaxis transfer to tele case discussed and evaluated by supervising physician Subjective Allergies: Coded Allergies: ACETAMINOPHEN (Verified Allergy, Unknown, 01/20/11) CODEINE (Verified Allergy, Unknown, 01/20/11) HYDROCODONE (Verified Allergy, Unknown, 01/20/11) Subjective reports SOB , no chest pain Objective Last 24 Hour Vital Signs Date Time Temp Pulse Resp B/P (MAP) Pulse Ox O2 Delivery O2 Flow Rate FiO2 06/04/17 14:03 79 18 97 Room Air 06/04/17 14:03 28 06/04/17 13:52 75 18 95 Room Air 06/04/17 12:00 98.4 67 17 94/58 95 Room Air 06/04/17 12:00 70 06/04/17 08:00 83 06/04/17 08:00 97.0 83 19 117/81 100 Room Air 06/04/17 07:37 Nasal Cannula 1.0 24 06/04/17 07:36 100 Nasal Cannula 1.0 24 06/04/17 07:36 73 18 Nasal Cannula 1.0 24 06/04/17 04:00 98.7 75 20 111/76 100 Nasal Cannula 2.0 06/04/17 04:00 84 06/04/17 01:00 76 18 97 Nasal Cannula 2.0 28 06/04/17 00:45 28 06/04/17 00:44 76 18 97 Nasal Cannula 2.0 28 06/04/17 00:00 98.7 84 24 122/76 98 Nasal Cannula 2.0 06/03/17 20:36 76 18 97 Nasal Cannula 2.0 28 06/03/17 20:17 28 06/03/17 20:17 76 18 97 Nasal Cannula 2.0 28 06/03/17 20:00 81 06/03/17 20:00 98.9 82 20 104/74 97 Nasal Cannula 2.0 06/03/17 19:43 97 Nasal Cannula 2.0 28 06/03/17 19:43 76 18 Nasal Cannula 2.0 28 06/03/17 19:43 Nasal Cannula 2.0 28 06/03/17 16:12 76 06/03/17 16:00 97.4 73 18 108/63 97 Nasal Cannula 2.0 Intake and Output 06/03/17 06/04/17 19:00 07:00 Intake Total 2000 ml Output Total 1100 ml 400 ml Balance 900 ml -400 ml Intake Oral 2000 ml Output Urine Total 1100 ml 400 ml Objective General Appearance: no acute distress HEENT: normocephalic, atraumatic, anicteric Respiratory/Chest: chest wall non-tender, no accessory muscle use, decreased breath sounds Cardiovascular: normal peripheral pulses, edema - trace BLE , other - SR with frequent PVC Abdomen: normal bowel sounds, soft, non tender - obese Neurologic/Psychiatric: alert, oriented x 3, responsive Musculoskeletal: normal muscle bulk Microbiology Date/Time Source Procedure Growth Status 06/02/17 22:57 Nasopharynx Influenza Types A,B Antigen ([facility]TON) - Final Complete Laboratory Tests 06/04/17 03:45: White Blood Count 5.0, Red Blood Count 4.24, Hemoglobin 10.4L, Hematocrit 32.8L , Mean Corpuscular Volume 77L, Mean Corpuscular Hemoglobin 24.5L, Mean Corpuscular Hemoglobin Concent 31.7L, Red Cell Distribution Width 17.3H, Platelet Count 185, Mean Platelet Volume 9.1, Neutrophils (%) (Auto) 62.7, Lymphocytes (%) (Auto) 31.0, Monocytes (%) (Auto) 3.1, Eosinophils (%) (Auto) 2.6, Basophils (%) (Auto) 0.5, Sodium Level 138, Potassium Level 3.5, Chloride Level 97L, Carbon Dioxide Level 36H, Anion Gap 5, Blood Urea Nitrogen 29H, Creatinine 1.8H, Estimat Glomerular Filtration Rate 34.3, Glucose Level 192H, Calcium Level 9.9, Magnesium Level 1.9 Current Medications Medications (Trade) Dose Ordered Sig/Ricardo Route PRN Reason Start Time Stop Time Status Last Admin Dose Admin Albuterol/ Ipratropium (Albuterol/ Ipratropium) 3 ml Q4H PRN HHN Shortness of Breath 06/01/17 18:00 06/06/17 17:59 06/04/17 13:51 Dextrose (Dextrose 50%) STAT PRN IV Hypoglycemia 06/01/17 16:00 07/01/17 15:59 Furosemide (Lasix) 40 mg EVERY 8 HOURS IV 06/01/17 22:00 07/01/17 21:59 06/04/17 13:55 Heparin Sodium (Porcine) (Heparin 5000 units/ml) 5,000 units EVERY 12 HOURS SUBQ 06/01/17 21:00 07/01/17 20:59 06/04/17 09:09 Ibuprofen (Motrin) 600 mg TIDPRN PRN ORAL For Pain 06/03/17 14:45 07/03/17 14:44 Ondansetron HCl (Zofran) 4 mg Q6H PRN IVP Nausea & Vomiting 06/01/17 16:00 07/01/17 15:59 Polyethylene Glycol (Miralax) 17 gm DAILYPRN PRN ORAL Constipation 06/01/17 16:00 07/01/17 15:59 Temazepam (Restoril) 15 mg HSPRN PRN ORAL Insomnia 06/01/17 16:00 06/08/17 15:59 06/04/17 00:17 [facility] Center[facility] Z[facility]ien NP Jun 04, 2017 14:16
--- NOTE | 2017-06-04 14:37 | Cardiology Progress Note ---
Assessment/Plan Assessment/Plan 1. CHF acute systolic 2. Chest pain. 3. Abnormal cardiac enzymes. 4. Renal insufficiency. 5. Obesity. 6. Chronic obstructive pulmonary disease history. 7. Anemia. 8. anemai dc diuretic as cr increased rxn for copd trop min abn snow etiology of cm not known but per pt is not a new issue has been know for more than 3 yeas so will not perform ischemia evla acei when cr stable echo prelim noted duplex neg for dvt low na diet fluid restriction Subjective Cardiovascular: Denies: chest pain, lightheadedness, palpitations Respiratory: Reports: shortness of breath - better Gastrointestinal/Abdominal: Denies: abdominal pain Genitourinary: Denies: burning Objective Last 24 Hour Vital Signs Date Time Temp Pulse Resp B/P (MAP) Pulse Ox O2 Delivery O2 Flow Rate FiO2 06/04/17 14:03 79 18 97 Room Air 06/04/17 14:03 28 06/04/17 13:52 75 18 95 Room Air 06/04/17 12:00 98.4 67 17 94/58 95 Room Air 06/04/17 12:00 70 06/04/17 08:00 83 06/04/17 08:00 97.0 83 19 117/81 100 Room Air 06/04/17 07:37 Nasal Cannula 1.0 24 06/04/17 07:36 100 Nasal Cannula 1.0 24 06/04/17 07:36 73 18 Nasal Cannula 1.0 24 06/04/17 04:00 98.7 75 20 111/76 100 Nasal Cannula 2.0 06/04/17 04:00 84 06/04/17 01:00 76 18 97 Nasal Cannula 2.0 28 06/04/17 00:45 28 06/04/17 00:44 76 18 97 Nasal Cannula 2.0 28 06/04/17 00:00 98.7 84 24 122/76 98 Nasal Cannula 2.0 06/03/17 20:36 76 18 97 Nasal Cannula 2.0 28 06/03/17 20:17 28 06/03/17 20:17 76 18 97 Nasal Cannula 2.0 28 06/03/17 20:00 81 06/03/17 20:00 98.9 82 20 104/74 97 Nasal Cannula 2.0 06/03/17 19:43 97 Nasal Cannula 2.0 28 06/03/17 19:43 76 18 Nasal Cannula 2.0 28 06/03/17 19:43 Nasal Cannula 2.0 28 06/03/17 16:12 76 06/03/17 16:00 97.4 73 18 108/63 97 Nasal Cannula 2.0 General Appearance: no apparent distress, obese Neck: supple Cardiovascular: normal rate Respiratory/Chest: expiratory wheezing Abdomen: normal bowel sounds, non tender, soft Extremities: no swelling Intake and Output 06/03/17 06/04/17 19:00 07:00 Intake Total 2000 ml Output Total 1100 ml 400 ml Balance 900 ml -400 ml Intake Oral 2000 ml Output Urine Total 1100 ml 400 ml Laboratory Tests Test 06/04/17 03:45 White Blood Count 5.0 K/UL (4.8-10.8) Red Blood Count 4.24 M/UL (4.20-5.40) Hemoglobin 10.4 G/DL (12.0-16.0) L Hematocrit 32.8 % (37.0-47.0) L Mean Corpuscular Volume 77 FL (80-99) L Mean Corpuscular Hemoglobin 24.5 PG (27.0-31.0) L Mean Corpuscular Hemoglobin Concent 31.7 G/DL (32.0-36.0) L Red Cell Distribution Width 17.3 % (11.6-14.8) H Platelet Count 185 K/UL (150-450) Mean Platelet Volume 9.1 FL (6.5-10.1) Neutrophils (%) (Auto) 62.7 % (45.0-75.0) Lymphocytes (%) (Auto) 31.0 % (20.0-45.0) Monocytes (%) (Auto) 3.1 % (1.0-10.0) Eosinophils (%) (Auto) 2.6 % (0.0-3.0) Basophils (%) (Auto) 0.5 % (0.0-2.0) Sodium Level 138 MMOL/L (136-145) Potassium Level 3.5 MMOL/L (3.5-5.1) Chloride Level 97 MMOL/L (98-107) L Carbon Dioxide Level 36 MMOL/L (21-32) H Anion Gap 5 mmol/L (5-15) Blood Urea Nitrogen 29 mg/dL (7-18) H Creatinine 1.8 MG/DL (0.55-1.30) H Estimat Glomerular Filtration Rate 34.3 mL/min (>60) Glucose Level 192 MG/DL (74-106) H Calcium Level 9.9 MG/DL (8.5-10.1) Magnesium Level 1.9 MG/DL (1.8-2.4) Microbiology Date/Time Source Procedure Growth Status 06/02/17 22:57 Nasopharynx Influenza Types A,B Antigen ([facility]TON) - Final Complete SURESH SALINAS Jun 04, 2017 14:36
[2017-06-04 16:00] VITALS: BP 103/67
[2017-06-04] MEDS ORDERED: Miralax 17gm pkt ORAL PRN (18:06)
[2017-06-04 20:01] VITALS: BP 100/60
[2017-06-05] VITALS: BP 117/61
[2017-06-05 03:00] VITALS: BP 104/58
[2017-06-05 06:20] LABS: BASOPHILS % (AUTO) 0.8 % (0.0-2.0); EOSINOPHILS % (AUTO) 3.5 % (0.0-3.0); HEMOGLOBIN 10.7 G/DL (12.0-16.0); LYMPHOCYTES % (AUTO) 32.7 % (20.0-45.0); MEAN CORPUSCULAR VOLUME 78 FL (80-99); MONOCYTES % (AUTO) 4.8 % (1.0-10.0); NEUTROPHILS % (AUTO) 58.1 % (45.0-75.0); PLATELET COUNT 202 K/UL (150-450); RED BLOOD COUNT 4.37 M/UL (4.20-5.40); RED CELL DISTRIBUTION WIDTH 17.1 % (11.6-14.8); WHITE BLOOD COUNT 5.5 K/UL (4.8-10.8)
[2017-06-05 06:37] LABS: ANION GAP 7 mmol/L (5-15); BLOOD UREA NITROGEN 33 mg/dL (7-18); CARBON DIOXIDE 34 MMOL/L (21-32); CHLORIDE 97 MMOL/L (98-107); CREATININE 1.7 MG/DL (0.55-1.30); POTASSIUM 3.6 MMOL/L (3.5-5.1); SODIUM 138 MMOL/L (136-145)
[2017-06-05 08:00] VITALS: BP 110/70
[2017-06-05] MEDS: Heparin 5000 units/ml inj SUBQ SCH ×2 (09:27→21:07)
[2017-06-05] MEDS: Albuterol/Ipratropium 3ml neb HHN PRN (09:45)
--- NOTE | 2017-06-05 11:20 | Pulmonology Progress Note ---
Assessment/Plan Assessment/Plan ASSESSMENT Elevated troponin CHF exacerbation, systolic severe CM ( EF 20-25%) Severe MR mild pulmonary HTN anemia HTN asthma/COPD hx ( no evidence f exacerbation) obesity PLAN OF CARE tele Diuresis, monitor cardiorenal parameters, volumes, creat worse Lasix stopped fluid restriction ECHO with EF 20-25% and RVSP of 35, severe MR Cardio follows medical management for SHF per cardio - started on every otehr day of lasix and BB, no TONY yet due to elev creat per cardio etiology of CM unknown, no new issue - few yrs patient is aware of it, but etiology unknown can be done as outpt Initial CXR with CHF, O2 HHN prn, no evidence of exacerbation Fup with CXR serial troponin with minimal elevation ECG no acute ischemic changes elev troponin likely demand [id number] due to SHF exacerbation Anemia w/up noted stool OB s/p 2 u PRBC ID follows keep off abx, no clear evidence of infection influenza negative DVT prophylaxis dc plan for tomorrow cardio recs greatly appreciated case discussed and evaluated by supervising physician Subjective Allergies: Coded Allergies: ACETAMINOPHEN (Verified Allergy, Unknown, 01/20/11) CODEINE (Verified Allergy, Unknown, 01/20/11) HYDROCODONE (Verified Allergy, Unknown, 01/20/11) Subjective feeling better, no SOB , no chest pain Objective Last 24 Hour Vital Signs Date Time Temp Pulse Resp B/P (MAP) Pulse Ox O2 Delivery O2 Flow Rate FiO2 06/05/17 09:49 78 18 97 Nasal Cannula 2.0 28 06/05/17 09:45 77 18 89 Nasal Cannula 2.0 28 06/05/17 08:47 Nasal Cannula 2.0 28 06/05/17 08:47 96 Nasal Cannula 2.0 28 06/05/17 08:45 28 06/05/17 08:42 77 18 Nasal Cannula 2.0 28 06/05/17 08:00 97.0 91 20 110/70 95 Room Air 06/05/17 08:00 73 06/05/17 04:00 72 06/05/17 03:00 97.7 72 18 104/58 90 Room Air 06/05/17 00:00 77 06/05/17 00:00 Room Air 06/05/17 00:00 97.2 78 20 117/61 91 Room Air 06/04/17 20:01 97.0 102 16 100/60 91 06/04/17 20:00 Room Air 06/04/17 20:00 79 06/04/17 19:20 Nasal Cannula 1.0 24 06/04/17 19:20 77 18 Nasal Cannula 1.0 24 06/04/17 19:20 99 Nasal Cannula 1.0 24 06/04/17 16:00 97.7 78 18 103/67 97 Room Air 06/04/17 16:00 80 06/04/17 14:03 79 18 97 Room Air 06/04/17 14:03 28 06/04/17 13:52 75 18 95 Room Air 06/04/17 12:00 98.4 67 17 94/58 95 Room Air 06/04/17 12:00 70 Intake and Output 06/04/17 06/05/17 19:00 07:00 Intake Total 350 ml 240 ml Output Total 1600 ml Balance -1250 ml 240 ml Intake Oral 350 ml 240 ml Output Urine Total 1600 ml # Voids 1 Objective General Appearance: no acute distress HEENT: normocephalic, atraumatic, anicteric Respiratory/Chest: chest wall non-tender, no accessory muscle use, decreased breath sounds Cardiovascular: normal peripheral pulses, edema - trace BLE , SR with frequent PVC Abdomen: normal bowel sounds, soft, non tender - obese Neurologic/Psychiatric: alert, oriented x 3, responsive Musculoskeletal: normal muscle bulk Microbiology Date/Time Source Procedure Growth Status 06/02/17 22:57 Nasopharynx Influenza Types A,B Antigen (COLTON) - Final Complete Laboratory Tests 06/05/17 05:22: White Blood Count 5.5, Red Blood Count 4.37, Hemoglobin 10.7L, Hematocrit 34.0L , Mean Corpuscular Volume 78L, Mean Corpuscular Hemoglobin 24.6L, Mean Corpuscular Hemoglobin Concent 31.6L, Red Cell Distribution Width 17.1H, Platelet Count 202, Mean Platelet Volume 8.9, Neutrophils (%) (Auto) 58.1, Lymphocytes (%) (Auto) 32.7, Monocytes (%) (Auto) 4.8, Eosinophils (%) (Auto) 3.5H, Basophils (%) (Auto) 0.8, Sodium Level 138, Potassium Level 3.6, Chloride Level 97L, Carbon Dioxide Level 34H, Anion Gap 7, Blood Urea Nitrogen 33H, Creatinine 1.7H, Estimat Glomerular Filtration Rate 36.6, Glucose Level 149H, Calcium Level 10.0 Current Medications Medications (Trade) Dose Ordered Sig/Ricardo Route PRN Reason Start Time Stop Time Status Last Admin Dose Admin Albuterol/ Ipratropium (Albuterol/ Ipratropium) 3 ml Q4H PRN HHN Shortness of Breath 06/04/17 18:15 06/09/17 14:14 06/05/17 09:45 Dextrose (Dextrose 50%) STAT PRN IV Hypoglycemia 06/04/17 18:06 07/04/17 18:05 Heparin Sodium (Porcine) (Heparin 5000 units/ml) 5,000 units EVERY 12 HOURS SUBQ 06/04/17 21:00 07/01/17 20:59 06/05/17 09:27 Ondansetron HCl (Zofran) 4 mg Q6H PRN IVP Nausea & Vomiting 06/04/17 18:06 07/01/17 18:05 Polyethylene Glycol (Miralax) 17 gm DAILYPRN PRN ORAL Constipation 06/04/17 18:06 07/04/17 18:05 Temazepam (Restoril) 15 mg HSPRN PRN ORAL Insomnia 06/04/17 18:07 06/11/17 18:06 06/05/17 00:52 [facility] NP Jun 05, 2017 11:20
--- NOTE | 2017-06-05 11:47 | Cardiology Progress Note ---
Assessment/Plan Assessment/Plan 1. CHF acute systolic 2. Chest pain. 3. Abnormal cardiac enzymes. 4. Renal insufficiency. 5. Obesity. 6. Chronic obstructive pulmonary disease history. 7. Anemia. 8. anemai dc diuretic as cr increased rxn for copd trop min abn resume lasix every other day staring tomorrow acei when cr stable duplex neg for dvt low na diet d/w pt fluid restriction d/w pt again start on coreg 3.125 mg bid start now and see if tolerate priro to dc need to see a cardiologsit soon on dc thorugh her health plan she understand that recommnedation Subjective Cardiovascular: Denies: chest pain, lightheadedness, palpitations Respiratory: Denies: shortness of breath Gastrointestinal/Abdominal: Denies: abdominal pain Genitourinary: Denies: burning Subjective walked to br Objective Last 24 Hour Vital Signs Date Time Temp Pulse Resp B/P (MAP) Pulse Ox O2 Delivery O2 Flow Rate FiO2 06/05/17 09:49 78 18 97 Nasal Cannula 2.0 28 06/05/17 09:45 77 18 89 Nasal Cannula 2.0 28 06/05/17 08:47 Nasal Cannula 2.0 28 06/05/17 08:47 96 Nasal Cannula 2.0 28 06/05/17 08:45 28 06/05/17 08:42 77 18 Nasal Cannula 2.0 28 06/05/17 08:00 97.0 91 20 110/70 95 Room Air 06/05/17 08:00 73 06/05/17 04:00 72 06/05/17 03:00 97.7 72 18 104/58 90 Room Air 06/05/17 00:00 77 06/05/17 00:00 Room Air 06/05/17 00:00 97.2 78 20 117/61 91 Room Air 06/04/17 20:01 97.0 102 16 100/60 91 06/04/17 20:00 Room Air 06/04/17 20:00 79 06/04/17 19:20 Nasal Cannula 1.0 24 06/04/17 19:20 77 18 Nasal Cannula 1.0 24 06/04/17 19:20 99 Nasal Cannula 1.0 24 06/04/17 16:00 97.7 78 18 103/67 97 Room Air 06/04/17 16:00 80 06/04/17 14:03 79 18 97 Room Air 06/04/17 14:03 28 06/04/17 13:52 75 18 95 Room Air 06/04/17 12:00 98.4 67 17 94/58 95 Room Air 06/04/17 12:00 70 General Appearance: no apparent distress, alert Neck: normal alignment Cardiovascular: normal rate, regular rhythm Respiratory/Chest: lungs clear, normal breath sounds Abdomen: normal bowel sounds, non tender, soft Extremities: no swelling Intake and Output 06/04/17 06/05/17 19:00 07:00 Intake Total 350 ml 240 ml Output Total 1600 ml Balance -1250 ml 240 ml Intake Oral 350 ml 240 ml Output Urine Total 1600 ml # Voids 1 Laboratory Tests Test 06/05/17 05:22 White Blood Count 5.5 K/UL (4.8-10.8) Red Blood Count 4.37 M/UL (4.20-5.40) Hemoglobin 10.7 G/DL (12.0-16.0) L Hematocrit 34.0 % (37.0-47.0) L Mean Corpuscular Volume 78 FL (80-99) L Mean Corpuscular Hemoglobin 24.6 PG (27.0-31.0) L Mean Corpuscular Hemoglobin Concent 31.6 G/DL (32.0-36.0) L Red Cell Distribution Width 17.1 % (11.6-14.8) H Platelet Count 202 K/UL (150-450) Mean Platelet Volume 8.9 FL (6.5-10.1) Neutrophils (%) (Auto) 58.1 % (45.0-75.0) Lymphocytes (%) (Auto) 32.7 % (20.0-45.0) Monocytes (%) (Auto) 4.8 % (1.0-10.0) Eosinophils (%) (Auto) 3.5 % (0.0-3.0) H Basophils (%) (Auto) 0.8 % (0.0-2.0) Sodium Level 138 MMOL/L (136-145) Potassium Level 3.6 MMOL/L (3.5-5.1) Chloride Level 97 MMOL/L (98-107) L Carbon Dioxide Level 34 MMOL/L (21-32) H Anion Gap 7 mmol/L (5-15) Blood Urea Nitrogen 33 mg/dL (7-18) H Creatinine 1.7 MG/DL (0.55-1.30) H Estimat Glomerular Filtration Rate 36.6 mL/min (>60) Glucose Level 149 MG/DL (74-106) H Calcium Level 10.0 MG/DL (8.5-10.1) Microbiology Date/Time Source Procedure Growth Status 06/02/17 22:57 Nasopharynx Influenza Types A,B Antigen ([facility]TON) - Final Complete SURESH SALINAS Jun 05, 2017 11:47
[2017-06-05 12:00] VITALS: BP 105/73
[2017-06-05 16:00] VITALS: BP 148/70
[2017-06-05 20:00] VITALS: BP 103/60
[2017-06-06] VITALS: BP 100/64
[2017-06-06 04:00] VITALS: BP 112/59
[2017-06-06 08:02] VITALS: BP 106/67
[2017-06-06] MEDS: Heparin 5000 units/ml inj SUBQ SCH ×2 (09:18→20:47)
--- NOTE | 2017-06-06 10:49 | Pulmonology Progress Note ---
Assessment/Plan Assessment/Plan ASSESSMENT Elevated troponin CHF exacerbation, systolic severe CM ( EF 20-25%) Severe MR mild pulmonary HTN anemia HTN asthma/COPD hx ( no evidence f exacerbation) obesity PLAN OF CARE tele Diuresis, monitor cardiorenal parameters, volumes, creat worse Lasix stopped fluid restriction ECHO with EF 20-25% and RVSP of 35, severe MR Cardio follows medical management for SHF per cardio - started on every other day of lLasix and BB, no TONY yet due to elev creat per cardio etiology of CM unknown, no new issue - few yrs patient is aware of it, but etiology unknown can be done as outpt Initial CXR with CHF, O2 HHN prn, no evidence of exacerbation Fup with CXR serial troponin with minimal elevation ECG no acute ischemic changes elev troponin likely demand [id number] due to SHF exacerbation Anemia w/up noted stool OB s/p 2 u PRBC ID follows keep off abx, no clear evidence of infection influenza negative DVT prophylaxis dc plan for today after seen by cardio cardio recs greatly appreciated case discussed and evaluated by supervising physician Subjective Allergies: Coded Allergies: ACETAMINOPHEN (Verified Allergy, Unknown, 01/20/11) CODEINE (Verified Allergy, Unknown, 01/20/11) HYDROCODONE (Verified Allergy, Unknown, 01/20/11) Subjective reports intermittent SOB , no chest pain feeling better pulse ox stable on RA Objective Last 24 Hour Vital Signs Date Time Temp Pulse Resp B/P (MAP) Pulse Ox O2 Delivery O2 Flow Rate FiO2 06/06/17 09:15 71 106/67 06/06/17 08:02 96.6 71 18 106/67 94 Room Air 06/06/17 04:00 97.0 61 18 112/59 96 Room Air 06/06/17 04:00 62 06/06/17 00:00 96.6 68 18 100/64 98 Room Air 06/06/17 00:00 66 06/05/17 22:12 Nasal Cannula 2.0 28 06/05/17 22:12 98 Nasal Cannula 2.0 28 06/05/17 22:12 80 18 Nasal Cannula 2.0 28 06/05/17 21:04 75 103/60 06/05/17 20:00 97.0 75 18 103/60 96 Room Air 06/05/17 20:00 69 06/05/17 18:00 68 06/05/17 16:00 97.9 73 20 148/70 91 Room Air 06/05/17 12:22 78 110/70 06/05/17 12:00 62 06/05/17 12:00 97.7 79 19 105/73 97 Room Air Intake and Output 06/05/17 06/06/17 19:00 07:00 Intake Total 352 ml 116 ml Output Total 600 ml Balance 352 ml -484 ml Intake Oral 352 ml 116 ml Output Urine Total 600 ml Objective General Appearance: no acute distress HEENT: normocephalic, atraumatic, anicteric Respiratory/Chest: chest wall non-tender, no accessory muscle use, decreased breath sounds Cardiovascular: normal peripheral pulses, edema - trace BLE , other - SR with frequent PVC Abdomen: normal bowel sounds, soft, non tender - obese Neurologic/Psychiatric: alert, oriented x 3, responsive Musculoskeletal: normal muscle bulk Current Medications Medications (Trade) Dose Ordered Sig/Ricardo Route PRN Reason Start Time Stop Time Status Last Admin Dose Admin Albuterol/ Ipratropium (Albuterol/ Ipratropium) 3 ml Q4H PRN HHN Shortness of Breath 06/04/17 18:15 06/09/17 14:14 06/05/17 09:45 Carvedilol (Coreg) 3.125 mg EVERY 12 HOURS ORAL 06/05/17 11:45 07/05/17 11:44 06/06/17 09:15 Dextrose (Dextrose 50%) STAT PRN IV Hypoglycemia 06/04/17 18:06 07/04/17 18:05 Furosemide (Lasix) 20 mg QOD ORAL 06/06/17 09:00 07/06/17 08:59 06/06/17 09:13 Heparin Sodium (Porcine) (Heparin 5000 units/ml) 5,000 units EVERY 12 HOURS SUBQ 06/04/17 21:00 07/01/17 20:59 06/06/17 09:18 Ondansetron HCl (Zofran) 4 mg Q6H PRN IVP Nausea & Vomiting 06/04/17 18:06 07/01/17 18:05 06/05/17 17:40 Polyethylene Glycol (Miralax) 17 gm DAILYPRN PRN ORAL Constipation 06/04/17 18:06 07/04/17 18:05 Temazepam (Restoril) 15 mg HSPRN PRN ORAL Insomnia 06/04/17 18:07 06/11/17 18:06 06/05/17 21:59 Jaylen ([facility]),Lexi KUMAR Jun 06, 2017 10:49
--- NOTE | 2017-06-06 11:21 | Infectious Diseases Prog Note ---
Assessment/Plan Assessment/Plan Assessment: SOB likely 2ry to CHF exacerbation, possible component of bronchitis, no evidence fo PNA -CXR: CHF. No significant change -Echo EF 20-25%, severe MR, mild pHTN URI symptoms- -influenza neg Afebrile, no leukocytosis -u/a wbc 10/15, nit neg, leuk +3; ucx 80-90 mixed urogenital contaminants- no UTI symptoms Troponinemia Anemia COPD/asthma HTN HLD obesity Plan: -Continue to monitor off abx -monitor CBC/BMP, temperatures -resp support -asp precautions Subjective Constitutional: Denies: no symptoms, fever, chills, fatigue, anorexia, drenching sweats, other Allergies: Coded Allergies: ACETAMINOPHEN (Verified Allergy, Unknown, 01/20/11) CODEINE (Verified Allergy, Unknown, 01/20/11) HYDROCODONE (Verified Allergy, Unknown, 01/20/11) Objective Vital Signs Last 24 Hour Vital Signs Date Time Temp Pulse Resp B/P (MAP) Pulse Ox O2 Delivery O2 Flow Rate FiO2 06/06/17 09:15 71 106/67 06/06/17 08:34 Room Air 06/06/17 08:33 94 Room Air 06/06/17 08:33 77 22 Room Air 06/06/17 08:02 96.6 71 18 106/67 94 Room Air 06/06/17 08:00 67 06/06/17 04:00 97.0 61 18 112/59 96 Room Air 06/06/17 04:00 62 06/06/17 00:00 96.6 68 18 100/64 98 Room Air 06/06/17 00:00 66 06/05/17 22:12 Nasal Cannula 2.0 28 06/05/17 22:12 98 Nasal Cannula 2.0 28 06/05/17 22:12 80 18 Nasal Cannula 2.0 28 06/05/17 21:04 75 103/60 06/05/17 20:00 97.0 75 18 103/60 96 Room Air 06/05/17 20:00 69 06/05/17 18:00 68 06/05/17 16:00 97.9 73 20 148/70 91 Room Air 06/05/17 12:22 78 110/70 06/05/17 12:00 62 06/05/17 12:00 97.7 79 19 105/73 97 Room Air Height (Feet): 5 Height (Inches): 4.00 Weight (Pounds): 215 HEENT: anicteric Cardiovascular: regularly irregular Abdomen: non distended Current Medications Medications (Trade) Dose Ordered Sig/Ricardo Route PRN Reason Start Time Stop Time Status Last Admin Dose Admin Albuterol/ Ipratropium (Albuterol/ Ipratropium) 3 ml Q4H PRN HHN Shortness of Breath 06/04/17 18:15 06/09/17 14:14 06/05/17 09:45 Carvedilol (Coreg) 3.125 mg EVERY 12 HOURS ORAL 06/05/17 11:45 07/05/17 11:44 06/06/17 09:15 Dextrose (Dextrose 50%) STAT PRN IV Hypoglycemia 06/04/17 18:06 07/04/17 18:05 Furosemide (Lasix) 20 mg QOD ORAL 06/06/17 09:00 07/06/17 08:59 06/06/17 09:13 Heparin Sodium (Porcine) (Heparin 5000 units/ml) 5,000 units EVERY 12 HOURS SUBQ 06/04/17 21:00 07/01/17 20:59 06/06/17 09:18 Ondansetron HCl (Zofran) 4 mg Q6H PRN IVP Nausea & Vomiting 06/04/17 18:06 07/01/17 18:05 06/05/17 17:40 Polyethylene Glycol (Miralax) 17 gm DAILYPRN PRN ORAL Constipation 06/04/17 18:06 07/04/17 18:05 Temazepam (Restoril) 15 mg HSPRN PRN ORAL Insomnia 06/04/17 18:07 06/11/17 18:06 06/05/17 21:59 SUZANNE STANTON M.D. Jun 06, 2017 11:21
[2017-06-06 12:00] VITALS: BP 110/65
[2017-06-06] MEDS ORDERED: FUROSEMIDE20 M1 ORAL (14:32)
[2017-06-06] MEDS ORDERED: COREG3.125 MG ORAL (14:32)
--- NOTE | 2017-06-06 14:33 | Discharge Instructions ---
Discharge Instructions Discharge Instructions Follow up with: technical research scientist within a week Diet: cardiac 2 GM Na, low fat Activity: as tolerated For Congestive Heart Failure Reminder Report to your physician any weight gain of 5 pounds or more in one week. Jaylen ([facility]),Lexi KUMAR Jun 06, 2017 14:33
[2017-06-06 16:00] VITALS: BP 101/55
--- NOTE | 2017-06-06 19:45 | Cardiology Progress Note ---
Assessment/Plan Assessment/Plan 1. CHF acute systolic 2. Chest pain. 3. Abnormal cardiac enzymes. 4. Renal insufficiency. 5. Obesity. 6. Chronic obstructive pulmonary disease history. 7. Anemia. 8. anemai off diuretic as cr increased rxn for copd trop min abn resume lasix every other day staring tomorrow acei when cr stable duplex neg for dvt low na diet d/w pt fluid restriction d/w pt again start on coreg 3.125 mg bid start now and see if tolerate priro to dc need to see a cardiologsit soon on dc thorugh her health plan she understand that recommnedation dc plan for tomorrwo cr better today labs in am Subjective Cardiovascular: Denies: chest pain, irregular heart rate, lightheadedness, palpitations Respiratory: Denies: shortness of breath Gastrointestinal/Abdominal: Denies: abdominal pain Subjective walked to br Objective Last 24 Hour Vital Signs Date Time Temp Pulse Resp B/P (MAP) Pulse Ox O2 Delivery O2 Flow Rate FiO2 06/06/17 16:00 66 06/06/17 16:00 98.1 69 18 101/55 97 Room Air 06/06/17 12:00 97.5 66 18 110/65 92 Room Air 06/06/17 12:00 62 06/06/17 09:15 71 106/67 06/06/17 08:34 Room Air 06/06/17 08:33 94 Room Air 06/06/17 08:33 77 22 Room Air 06/06/17 08:02 96.6 71 18 106/67 94 Room Air 06/06/17 08:00 67 06/06/17 04:00 97.0 61 18 112/59 96 Room Air 06/06/17 04:00 62 06/06/17 00:00 96.6 68 18 100/64 98 Room Air 06/06/17 00:00 66 06/05/17 22:12 Nasal Cannula 2.0 28 06/05/17 22:12 98 Nasal Cannula 2.0 28 06/05/17 22:12 80 18 Nasal Cannula 2.0 28 06/05/17 21:04 75 103/60 06/05/17 20:00 97.0 75 18 103/60 96 Room Air 06/05/17 20:00 69 General Appearance: alert Neck: no JVD Cardiovascular: normal rate, regular rhythm Respiratory/Chest: lungs clear, normal breath sounds Abdomen: non tender, soft Extremities: no swelling Intake and Output 06/05/17 06/06/17 19:00 07:00 Intake Total 352 ml 116 ml Output Total 600 ml Balance 352 ml -484 ml Intake Oral 352 ml 116 ml Output Urine Total 600 ml SURESH SALINAS Jun 06, 2017 19:45
[2017-06-06 20:00] VITALS: BP 101/58
[2017-06-07] VITALS: BP_SYST 115; BP_SYST 95; BP_DIAS 58; BP_DIAS 68
[2017-06-07 04:00] VITALS: BP 101/62
[2017-06-07] MEDS: Albuterol/Ipratropium 3ml neb HHN PRN (07:29)
[2017-06-07 08:00] VITALS: BP 111/60
[2017-06-07] MEDS: Heparin 5000 units/ml inj SUBQ SCH (08:45)
[2017-06-07 09:10] LABS: ANION GAP 3 mmol/L (5-15); BLOOD UREA NITROGEN 36 mg/dL (7-18); CALCIUM 10.2 MG/DL (8.5-10.1); CARBON DIOXIDE 36 MMOL/L (21-32); CHLORIDE 99 MMOL/L (98-107); CREATININE 1.6 MG/DL (0.55-1.30); SODIUM 138 MMOL/L (136-145)
--- NOTE | 2017-06-07 09:58 | Infectious Diseases Prog Note ---
Assessment/Plan Assessment/Plan Assessment: SOB likely 2ry to CHF exacerbation, possible component of bronchitis, no evidence fo PNA -CXR: CHF. No significant change -Echo EF 20-25%, severe MR, mild pHTN URI symptoms- -influenza neg Afebrile, no leukocytosis -u/a wbc 10/15, nit neg, leuk +3; ucx 80-90 mixed urogenital contaminants- no UTI symptoms Troponinemia Anemia COPD/asthma HTN HLD obesity Plan: -Continue to monitor off abx -monitor CBC/BMP, temperatures -resp support -asp precautions Subjective Constitutional: Denies: no symptoms, fever, chills, fatigue, anorexia, drenching sweats, other Allergies: Coded Allergies: ACETAMINOPHEN (Verified Allergy, Unknown, 01/20/11) CODEINE (Verified Allergy, Unknown, 01/20/11) HYDROCODONE (Verified Allergy, Unknown, 01/20/11) Objective Vital Signs Last 24 Hour Vital Signs Date Time Temp Pulse Resp B/P (MAP) Pulse Ox O2 Delivery O2 Flow Rate FiO2 06/07/17 08:43 72 111/60 06/07/17 08:00 72 06/07/17 08:00 97.3 72 20 111/60 100 Room Air 06/07/17 07:35 99 20 95 Room Air 06/07/17 07:34 101 20 Room Air 06/07/17 07:34 100 20 92 Room Air 21 06/07/17 07:33 Room Air 21 06/07/17 07:33 92 Room Air 21 06/07/17 04:00 97.9 70 18 101/62 98 Room Air 06/07/17 04:00 67 06/07/17 00:00 71 06/07/17 00:00 97.9 69 20 95/58 98 Room Air 06/06/17 20:47 72 101/58 06/06/17 20:00 98.2 72 18 101/58 96 Room Air 06/06/17 20:00 66 06/06/17 18:50 83 20 Room Air 06/06/17 18:50 95 Room Air 21 06/06/17 18:50 Room Air 21 06/06/17 16:00 66 06/06/17 16:00 98.1 69 18 101/55 97 Room Air 06/06/17 12:00 97.5 66 18 110/65 92 Room Air 06/06/17 12:00 62 Height (Feet): 5 Height (Inches): 4.00 Weight (Pounds): 221 HEENT: anicteric Respiratory/Chest: no respiratory distress Cardiovascular: regularly irregular Abdomen: no organomegaly Laboratory Tests Test 06/07/17 08:00 Sodium Level 138 MMOL/L (136-145) Potassium Level 4.0 MMOL/L (3.5-5.1) Chloride Level 99 MMOL/L (98-107) Carbon Dioxide Level 36 MMOL/L (21-32) H Anion Gap 3 mmol/L (5-15) L Blood Urea Nitrogen 36 mg/dL (7-18) H Creatinine 1.6 MG/DL (0.55-1.30) H Estimat Glomerular Filtration Rate 39.3 mL/min (>60) Glucose Level 195 MG/DL (74-106) H Calcium Level 10.2 MG/DL (8.5-10.1) H Magnesium Level 1.9 MG/DL (1.8-2.4) Pro-B-Type Natriuretic Peptide 636 pg/mL (0-125) H Current Medications Medications (Trade) Dose Ordered Sig/Ricardo Route PRN Reason Start Time Stop Time Status Last Admin Dose Admin Albuterol/ Ipratropium (Albuterol/ Ipratropium) 3 ml Q4H PRN HHN Shortness of Breath 06/04/17 18:15 06/09/17 14:14 06/07/17 07:29 Carvedilol (Coreg) 3.125 mg EVERY 12 HOURS ORAL 06/05/17 11:45 07/05/17 11:44 06/06/17 20:47 Dextrose (Dextrose 50%) STAT PRN IV Hypoglycemia 06/04/17 18:06 07/04/17 18:05 Furosemide (Lasix) 20 mg QOD ORAL 06/06/17 09:00 07/06/17 08:59 06/06/17 09:13 Heparin Sodium (Porcine) (Heparin 5000 units/ml) 5,000 units EVERY 12 HOURS SUBQ 06/04/17 21:00 07/01/17 20:59 06/07/17 08:45 Ondansetron HCl (Zofran) 4 mg Q6H PRN IVP Nausea & Vomiting 06/04/17 18:06 07/01/17 18:05 06/05/17 17:40 Polyethylene Glycol (Miralax) 17 gm DAILYPRN PRN ORAL Constipation 06/04/17 18:06 07/04/17 18:05 Temazepam (Restoril) 15 mg HSPRN PRN ORAL Insomnia 06/04/17 18:07 06/11/17 18:06 06/06/17 20:56 SUZANNE STANTON M.D. Jun 07, 2017 09:58
[2017-06-07 12:00] VITALS: BP 106/63
--- NOTE | 2017-06-07 13:06 | Pulmonology Progress Note ---
Assessment/Plan Assessment/Plan ASSESSMENT Elevated troponin CHF exacerbation, systolic severe CM ( EF 20-25%) Severe MR mild pulmonary HTN anemia HTN asthma/COPD hx ( no evidence f exacerbation) obesity PLAN OF CARE tele Diuresis, monitor cardiorenal parameters, volumes, creat worse Lasix stopped fluid restriction ECHO with EF 20-25% and RVSP of 35, severe MR Cardio follows medical management for SHF per cardio - started on every other day of lLasix and BB, no TONY yet due to elev creat per cardio etiology of CM unknown, no new issue - few yrs patient is aware of it, but etiology unknown can be done as outpt Initial CXR with CHF, O2 HHN prn, no evidence of exacerbation Fup with CXR serial troponin with minimal elevation ECG no acute ischemic changes elev troponin likely demand [id number] due to SHF exacerbation Anemia w/up noted stool OB s/p 2 u PRBC ID follows keep off abx, no clear evidence of infection influenza negative DVT prophylaxis dc today scripts provided cardio recs greatly appreciated Of note: the time of this note does not reflect the actual time the patient was seen case discussed and evaluated by supervising physician Subjective Allergies: Coded Allergies: ACETAMINOPHEN (Verified Allergy, Unknown, 01/20/11) CODEINE (Verified Allergy, Unknown, 01/20/11) HYDROCODONE (Verified Allergy, Unknown, 01/20/11) Subjective no chest pain feeling better pulse ox stable on RA Objective Last 24 Hour Vital Signs Date Time Temp Pulse Resp B/P (MAP) Pulse Ox O2 Delivery O2 Flow Rate FiO2 06/07/17 12:00 97.9 86 20 106/63 97 Room Air 06/07/17 08:43 72 111/60 06/07/17 08:00 72 06/07/17 08:00 97.3 72 20 111/60 100 Room Air 06/07/17 07:35 99 20 95 Room Air 21 06/07/17 07:34 101 20 Room Air 06/07/17 07:34 100 20 92 Room Air 21 06/07/17 07:33 Room Air 21 06/07/17 07:33 92 Room Air 21 06/07/17 04:00 97.9 70 18 101/62 98 Room Air 06/07/17 04:00 67 06/07/17 00:00 71 06/07/17 00:00 97.9 69 20 95/58 98 Room Air 06/06/17 20:47 72 101/58 06/06/17 20:00 98.2 72 18 101/58 96 Room Air 06/06/17 20:00 66 06/06/17 18:50 83 20 Room Air 06/06/17 18:50 95 Room Air 21 06/06/17 18:50 Room Air 21 06/06/17 16:00 66 06/06/17 16:00 98.1 69 18 101/55 97 Room Air Intake and Output 06/06/17 06/07/17 19:00 07:00 Intake Total 340 ml 420 ml Output Total 650 ml 300 ml Balance -310 ml 120 ml Intake Oral 340 ml 420 ml Output Urine Total 650 ml 300 ml Objective General Appearance: no acute distress HEENT: normocephalic, atraumatic, anicteric Respiratory/Chest: chest wall non-tender, no accessory muscle use, decreased breath sounds Cardiovascular: normal peripheral pulses, edema - trace BLE , other - SR with frequent PVC Abdomen: normal bowel sounds, soft, non tender - obese Neurologic/Psychiatric: alert, oriented x 3, responsive Musculoskeletal: normal muscle bulk Laboratory Tests 06/07/17 08:00: Sodium Level 138, Potassium Level 4.0, Chloride Level 99, Carbon Dioxide Level 36H, Anion Gap 3L, Blood Urea Nitrogen 36H, Creatinine 1.6H, Estimat Glomerular Filtration Rate 39.3, Glucose Level 195H, Calcium Level 10.2H, Magnesium Level 1.9, Pro-B-Type Natriuretic Peptide 636H Lexi York NP (Vanchtein) Jun 07, 2017 13:06
--- NOTE | 2017-06-08 21:57 | Diagnostic Imaging Report ---
APPROVED REPORT CPT Code: 60023 Present Symptoms Comments: R/O DVT BILATERAL: Imaging reveals a patent deep venous system bilaterally. There is no evidence of thrombus within the femoral, popliteal or tibial segments. The greater saphenous veins are also within normal limits. Doppler indicates normal spontaneous flow within these segments.
--- NOTE | 2017-06-09 13:08 | Discharge Summary ---
Discharge Summary Hospital Course Date of Admission Jun 01, 2017 at 11:02 Date of Discharge Jun 07, 2017 at 12:29 Admitting Diagnosis CHF/NSTEMI HPI Fadumo Coker is a 66 year old female who was admitted on Jun 01, 2017 at 11:02 for Congestive Heart Failure Hospital Course [id number] Discharge Discharge Disposition Patient was discharged to Home (01) Discharge Diagnoses: Discharge Instructions Discharge Instructions Follow up with: offline cutter within a week Activity: as tolerated Swati Gamino NP Jun 09, 2017 13:08
--- NOTE | 2017-06-10 03:30 | Discharge Summary 2 SIG ---
DATE OF ADMISSION: 06/01/2017 DATE OF DISCHARGE: 06/07/2017 CONSULTANTS: 1. Kenyon Weiner M.D. 2. Marc Roldan M.D. REASON FOR ADMISSION: The patient is a 66-year-old female with history of obesity, hypertension, and asthma, presented to ED with five days of increasing dyspnea with exertion and orthopnea. She has history of congestive heart failure and was also having chest pain. She felt short of breath that causes discomfort in the chest. On evaluation at ED, blood work showed hemoglobin level of 7.9, hematocrit was 26.9, WBC was 6, and creatinine was 1.3. Initial troponin was 0.087. Repeat troponin was 0.093. She had BNP 2757. Urinalysis showed 3+ leukocyte esterase with 10 to 15 WBC and 5 to 10 RBC. She had a chest x-ray done that showed CHF with effusion. EKG was in normal sinus rhythm. BRIEF HOSPITAL COURSE: She was then admitted to [facility] for evaluation of elevated troponin and anemia. Anemia workup was done. She had normal iron stores and binding capacity. She was given two units packed RBC blood transfusion. Stool OB was ordered, however, no specimen was collected. She had upper respiratory symptoms. Rapid influenza screen was negative for influenza A and B. She had a urine culture done that showed growth of Proteus and mixed urogenital contaminants, however, colony counts were low. She had no UTI symptoms. She was continued to be observed off antibiotic treatment. She was followed by Dr. Roldan. She was initially given IV diuretics. She underwent an electrocardiogram that showed low-voltage QRS with no significant ST to T-wave abnormalities. Venous duplex of lower extremity was negative for DVT. She was placed on fluid restriction. Troponin still minimally abnormal, uncertain as to the cause of the patient's cardiomyopathy. Initially was thought that the patient would need ischemic workup, but cardiomyopathy is not a new issue and the patient has been diagnosed for more than three years. Ischemia evaluation not needed during this admission. Lasix was placed on hold due to rising creatinine level. She was then started on low-dose Coreg. She was advised need to see a game engineer as soon as discharged. She was eventually resumed on Lasix every other day. Off TONY inhibitor due to elevated creatinine. She was eventually discharged home. FINAL DIAGNOSES: 1. Acute systolic congestive heart failure exacerbation. 2. Severe cardiomyopathy, ejection fraction 20% to 25%. 3. Severe mitral regurgitation. 4. Mild pulmonary hypertension. 5. Anemia. 6. Hypertension. 7. Asthma/chronic obstructive pulmonary disease. 8. Obesity. 9. Elevated troponin, likely demand ischemia due to systolic heart failure exacerbation. DISCHARGE DISPOSITION: The patient was discharged home. DISCHARGE MEDICATIONS: Continue with Coreg and Lasix. DISCHARGE INSTRUCTIONS: Follow up with PMD and game engineer in a week. Cedrick Chowdary M.D. I have been assigned to dictate discharge summary on this account and I was not involved in the patient's management. Swati Gamino N.P. DR: CHASTITY JOB#: [id number] CC: LEEANN
--- NOTE | 2017-06-27 09:31 | Cardiology Report ---
APPROVED REPORT EXAM: Two-dimensional and M-mode echocardiogram with Doppler and color Doppler. INDICATION Left ventricular function M-Mode DIMENSIONS IVSd0.9 (0.7-1.1cm)Left Atrium (MM)4.6 (1.6-4.0cm) LVDd5.6 (3.5-5.6cm)Aortic Root2.4 (2.0-3.7cm) PWd1.0 (0.7-1.1cm)Aortic Cusp Exc.1.6 (1.5-2.0cm) LVDs5.0 (2.5-4.0cm) PWs1.0 cm Technically difficult study due to poor acoustical windows. Normal left ventricular chamber size. Severe gllobal left ventricular hypokinesis, worse in inferior daily. Left ventricular ejection fraction estimated to be 25-30%. No evidence of left ventricular hypertrophy. Small to mild posterior pericardial effusion. Right cardiac chamber sizes are within normal limits. Mild left atrial enlargement by 2D. Focal aortic valve sclerosis with adequate cusp excursion. Thickened mitral valve leaflets with normal excursion. Mild mitral annulus and aortic root calcification. Pulmonic valve not well visualized. Normal tricuspid valve structure. IVC is normal in size non-collapsible with respiration indicate increased RA pressure. RA pressure of 10mmHg. A color flow and spectral Doppler study was performed and revealed: Trace aortic regurgitation. Severe mitral regurgitation. Mitral inflow velocities indicates possible pseudo normalization pattern implying significant left ventricular diastolic dysfunction. Mild tricuspid regurgitation. Tricuspid systolic velocities suggests peak right ventricular systolic pressure of 35mmHg Consistent with mild pulmonary hypertension. Pulmonic regurgitation present.
== END 2017-06-07 12:29 | disposition home or self-care (01) | DRG 194 ==
LOC: EDBD 10:18 → EMR 10:40 → 2E 11:02 → EDBEDREQ 11:12 → EDBEDREQSVC 12:21 → EDBEDREQ 12:29 → 2W 12:33 → 2E 06-04 18:05
PROC: 30233N1 Transfusion of Nonautologous Red Blood Cells into Peripheral Vein, Percutaneous Approach (ICD-10-PCS; principal; 2017-06-01)
DX: I11.0 Hypertensive heart disease with heart failure (principal); I42.9 Cardiomyopathy, unspecified; I24.8 Other forms of acute ischemic heart disease; I10 Essential (primary) hypertension; I50.23 Acute on chronic systolic (congestive) heart failure; J44.9 Chronic obstructive pulmonary disease, unspecified; I34.0 Nonrheumatic mitral (valve) insufficiency; D64.9 Anemia, unspecified; E66.9 Obesity, unspecified; Z88.6 Allergy status to analgesic agent; E78.5 Hyperlipidemia, unspecified
CPT/HCPCS: 36415; 71045; 80048; 80053; 80069; 81003; 82550; 83540; 83550; 83735; 83880; 84484; 85007; 85025; 85610; 85730; 86710; 86850; 86900; 86901; 86920; 87086; 87181; 93005; 93306; 93970; 94640; 94664; 94760; J2405; J7620